=== PATIENT | female | born 1940 | race Hispanic/Latino ===

== ENCOUNTER 2017-06-16 13:10 | Inpatient (IN) | payer MEDICARE ==
[2017-06-16] MEDS ORDERED: DUONEB *Not for PRN Use IH ONE ×3 (13:29→15:03)
[2017-06-16] MEDS ORDERED: LASIX IV ONE (14:01)
[2017-06-16 14:07] LABS: Basophils # (Auto) 0.1 K/mm3 (0.0-0.1); Basophils % (Auto) 0.7 % (0.0-1.8); Eosinophils # (Auto) 0.1 K/mm3 (0.0-0.4); Eosinophils % (Auto) 0.5 % (0.0-4.3); Lymphocytes # (Auto) 1.1 K/mm3 (1.2-5.4); Lymphocytes % (Auto) 7.6 % (13.4-35.0); Mean Corpuscular HGB Conc 30 % (30-34); Mean Corpuscular Volume 80 fl (79-97); Platelet Count 295 K/mm3 (140-440); Red Blood Count 5.51 M/mm3 (3.65-5.03); Red Cell Distribution Width 19.7 % (13.2-15.2)
[2017-06-16 14:11] LABS: Hematocrit 44.1 % (30.3-42.9); Hemoglobin 13.4 gm/dl (10.1-14.3); Mean Corpuscular Hemoglobin 24 pg (28-32)
[2017-06-16 14:15] LABS: INR 1.3 (0.87-1.13)
[2017-06-16 14:16] LABS: Partial Thromboplastin Time 32.9 Sec. (24.2-36.6)
[2017-06-16 14:18] LABS: BUN/Creatinine Ratio 26; Blood Urea Nitrogen 34 mg/dL (7-17); Calcium 9.7 mg/dL (8.4-10.2); Hemolysis Index 61
--- NOTE | 2017-06-16 14:31 | XRay Report ---
AP CHEST: HISTORY: Difficulty in breathing No comparison. There is moderate cardiomegaly with normal pulmonary vascularity. The lungs are clear. The bony structures are grossly intact. IMPRESSION: Cardiomegaly.
[2017-06-16] MEDS ORDERED: LEVAQUIN 500MG/100ML 500 MG/100 ML BAG IV ONE (15:04)
[2017-06-16] MEDS ORDERED: CARDIZEM IV ONE (15:05)
--- NOTE | 2017-06-16 15:07 | Emergency Department Report ---
ED General Adult HPI - General Chief complaint: Dyspnea/Respdistress Stated complaint: MARY JO Time Seen by Provider: 06/16/17 13:59 Source: patient, EMS Mode of arrival: Stretcher Limitations: No Limitations - History of Present Illness Initial comments: Patient presents to the emergency department in respiratory distress. States that she was just admitted to [facility] for pneumonia. She gives a history of chronic atrial fibrillation as well as congestive heart failure. She is not on home O2. She does not complain of chest pain or leg pain. She has noted leg edema since her discharge from [facility]. The patient was found to have a pulse oximetry in the 80s by EMS. She was treated with albuterol and Solu-Medrol and magnesium by EMS. States her symptoms are somewhat improved. -: Gradual, days(s) Radiation: other (not complaining of pain) Severity scale (0 -10): 0 Consistency: constant (dyspnea for the past few days since discharge) Improves with: none Worsens with: none Associated Symptoms: cough (occasional cough only no hemoptysis.), shortness of breath Treatments Prior to Arrival: none - Related Data Allergies Allergy/AdvReac Type Severity Reaction Status Date / Time No Known Allergies Allergy Unverified 06/16/17 13:34 ED Review of Systems ROS: Stated complaint: MARY JO Other details as noted in HPI Constitutional: denies: chills, fever Eyes: denies: eye pain, eye discharge, vision change ENT: denies: ear pain, throat pain Respiratory: shortness of breath. denies: wheezing Cardiovascular: denies: chest pain, palpitations Endocrine: no symptoms reported Gastrointestinal: denies: abdominal pain, nausea, diarrhea Genitourinary: denies: urgency, dysuria, discharge Musculoskeletal: denies: back pain, joint swelling, arthralgia Skin: denies: rash, lesions Neurological: denies: headache, weakness, paresthesias Psychiatric: denies: anxiety, depression Hematological/Lymphatic: denies: easy bleeding, easy bruising ED Past Medical Hx - Past Medical History Previous Medical History?: Yes Hx Hypertension: Yes Hx Congestive Heart Failure: Yes Hx Asthma: Yes Additional medical history: AFIB - Social History Smoking Status: Never Smoker Substance Use Type: None ED Physical Exam - General Limitations: No Limitations General appearance: alert, other (mild respiratory distress on a neb) - Head Head exam: Present: atraumatic, normocephalic - Eye Eye exam: Present: normal appearance. Absent: scleral icterus - ENT ENT exam: Present: mucous membranes moist - Respiratory Respiratory exam: Present: wheezes, rales (bilateral rales do sound somewhat moist), accessory muscle use. Absent: respiratory distress - Cardiovascular Cardiovascular Exam: Present: tachycardia, irregular rhythm. Absent: systolic murmur, diastolic murmur, rubs, gallop - GI/Abdominal GI/Abdominal exam: Present: soft, normal bowel sounds. Absent: distended, tenderness, guarding, rebound, rigid - Extremities Exam Extremities exam: Present: normal inspection - Back Exam Back exam: Present: normal inspection - Neurological Exam Neurological exam: Present: alert, oriented X3, CN II-XII intact. Absent: motor sensory deficit - Psychiatric Psychiatric exam: Present: normal affect, normal mood - Skin Skin exam: Present: warm, dry, intact, normal color. Absent: rash ED Course Vital Signs 06/16/17 06/16/17 06/16/17 13:34 13:37 14:05 Temperature 97.3 F L Pulse Rate 118 H Pulse Rate [ 118 H 105 H Anterior Bilateral Throughout] Respiratory 30 H Rate Respiratory 20 20 Rate [Anterior Bilateral Throughout] Blood Pressure 118/67 O2 Sat by Pulse 91 Oximetry 06/16/17 06/16/17 06/16/17 14:14 14:15 14:19 Temperature Pulse Rate 119 H 113 H Pulse Rate [ Anterior Bilateral Throughout] Respiratory 18 14 20 Rate Respiratory Rate [Anterior Bilateral Throughout] Blood Pressure 105/60 O2 Sat by Pulse 91 91 Oximetry 06/16/17 06/16/17 14:31 15:05 Temperature Pulse Rate 120 H Pulse Rate [ 120 H Anterior Bilateral Throughout] Respiratory 17 Rate Respiratory 22 Rate [Anterior Bilateral Throughout] Blood Pressure 116/68 O2 Sat by Pulse Oximetry - Reevaluation(s) Reevaluation #1: The patient's respiratory distress appears to be multifactorial. I don't find her x-ray particularly compelling for refractory pneumonia. She was continued on Levaquin. She is continued on nebs. She's had magnesium and Solu-Medrol. She was given a small dose of Lasix and diltiazem for her atrial fibrillation with rapid ventricular response. I also added a d-dimer because she was substantially hypoxic per report. At this point she does not require airway intervention or BiPAP. This will have to be monitored. An arterial blood gas will be done as necessary. 06/16/17 15:13 ED Medical Decision Making - Lab Data Result diagrams: 06/16/17 13:43 06/16/17 13:43 Laboratory Results - last 24 hr 06/16/17 06/16/17 06/16/17 13:43 13:43 13:43 WBC 14.4 H RBC 5.51 H Hgb 13.4 Hct 44.1 H MCV 80 MCH 24 L MCHC 30 RDW 19.7 H Plt Count 295 Lymph % (Auto) 7.6 L [place] % (Auto) 7.0 Eos % (Auto) 0.5 Baso % (Auto) 0.7 Lymph # 1.1 L [place] # 1.0 H Eos # 0.1 Baso # 0.1 Seg Neutrophils % 84.2 H Seg Neutrophils # 12.2 H PT 16.9 H INR 1.30 H APTT 32.9 Sodium 143 Potassium 4.0 Chloride 102.9 Carbon Dioxide 20 L Anion Gap 24 BUN 34 H Creatinine 1.3 H Estimated GFR 40 BUN/Creatinine Ratio 26 Glucose 107 H Calcium 9.7 Troponin T < 0.010 NT-Pro-B Natriuret Pep 3968 H - EKG Data -: EKG Interpreted by Me Rate: tachycardia - EKG Data Interpretation: other (low-voltage particularly in the standard leads. Left axis deviation. Atrial fibrillation with rapid ventricular response. Loss of anterior forces possibly consistent with old anterior infarct.) - Radiology Data Radiology results: report reviewed interpreted by me: Patient has cardiomegaly on x-ray. She has chronic markings. I'm not impressed with the presence of a refractory pneumonia. She does have some increased vascular markings. Critical Care Time: Yes Critical care time in (mins) excluding proc time.: 60 Critical care attestation.: If time is entered above; I have spent that time in minutes in the direct care of this critically ill patient, excluding procedure time. ED Disposition Clinical Impression: Respiratory distress, Hypoxia, COPD exacerbation, Atrial fibrillation with rapid ventricular response Cardiomyopathy Qualifiers: Cardiomyopathy type: unspecified Qualified Code(s): I42.9 - Cardiomyopathy, unspecified Disposition: DC-09 OP ADMIT IP TO THIS HOSP Is pt being admited?: Yes Does the pt Need Aspirin: Yes Condition: Stable Instructions: Chronic Bronchitis (ED) Referrals: PRIMARY CARE, [Primary Care Provider] - 3-5 Days Time of Disposition: 15:19
[2017-06-16] MEDS ORDERED: BABY ASPIRIN PO ONE (15:19)
[2017-06-16 15:22] LABS: Albumin 4.5 g/dL (3.9-5); Bilirubin,Direct 0.2 mg/dL (0-0.2); Magnesium 3.4 mg/dL (1.7-2.3)
--- NOTE | 2017-06-16 16:31 | History and Physical Report ---
History of Present Illness Chief complaint: Its hard for me to catch my breath History of present illness: 77 YO Female with Atrial Fib, HTN, COPD, Asthma, CHF presents to ED for evaluation. Pt states that she has experienced shortness of breath for the past 3 days with worsening symptoms over the past 6 hours. Pt also acknowledges feeling like her heart is beating too fast. EMS was notified and upon arrival patient was found to have hypoxemic respiratory failure with oxygen saturation in the 80's. Pt treated with nebulizer and steroid therapy and transported to [facility] for evaluation. Pt seen and evaluated in ED and found to have Atrial Fib with RVR, As well as sepsis, pneumonia with exacerbation of COPD. Pt initiated on sepsis protocol, treated with NIPPV and admitted to telemetry. Past History Past Medical History: atrial fib, COPD, heart failure, hypertension Past Surgical History: No surgical history, Other (reviewed) Social history: . denies: smoking, alcohol abuse, prescription drug abuse Family history: hypertension Medications and Allergies Allergies Allergy/AdvReac Type Severity Reaction Status Date / Time No Known Allergies Allergy Unverified 06/16/17 13:34 Review of Systems Constitutional: no weight loss, no weight gain, no fever, no chills Ears, nose, mouth and throat: no ear pain, no ear discharge, no tinnitis, no decreased hearing, no nose pain Breasts: no change in shape, no swelling, no mass Cardiovascular: palpitations, shortness of breath, no chest pain, no orthopnea, no edema, no dyspnea on exertion, no paroxysmal nocturnal dyspnea, no claudication, no phlebitis Respiratory: no cough, no congestion, no wheezing, no pleurisy, no pain Gastrointestinal: no nausea, no vomiting, no diarrhea Genitourinary Female: no pelvic pain, no flank pain, no menorrhagia Menstruation: no currently menstrual, no premenarcheal, no post hysterectomy Rectal: no pain, no incontinence, no bleeding Musculoskeletal: no neck stiffness, no neck pain, no shooting arm pain, no arm numbness/tingling, no low back pain Integumentary: no deferred, no rash, no pruritis Neurological: no head injury, no transient paralysis, no paralysis, no weakness , no parathesias, no numbness Psychiatric: no anxiety, no memory loss, no change in sleep habits, no sleep disturbances Endocrine: no cold intolerance, no heat intolerance, no polyphagia, no excessive thirst, no polyuria Hematologic/Lymphatic: no easy bruising, no easy bleeding Allergic/Immunologic: no urticaria, no allergic rhinitis, no wheezing Exam - Constitutional Vitals: Temp Pulse Resp BP Pulse Ox 97.3 F L 114 H 23 105/63 91 06/16/17 13:34 06/16/17 16:15 06/16/17 16:15 06/16/17 16:15 06/16/17 14:19 General appearance: Present: mild distress - EENT Eyes: Present: PERRL ENT: hearing intact, clear oral mucosa - Neck Neck: Present: supple, normal ROM - Respiratory Respiratory effort: labored Respiratory: bilateral: diminished - Cardiovascular Rhythm: irregularly irregular - Extremities Extremities: pulses symmetrical, No edema Peripheral Pulses: within normal limits - Abdominal General gastrointestinal: Present: soft, non-tender, non-distended, normal bowel sounds Female genitourinary: Present: normal - Integumentary Integumentary: Present: clear, warm, dry - Musculoskeletal Musculoskeletal: gait normal, strength equal bilaterally - Psychiatric Psychiatric: appropriate mood/affect, intact judgment & insight - Neurologic Neurologic: CNII-XII intact, moves all extremities Results - Labs CBC & Chem 7: 06/16/17 13:43 06/16/17 13:43 Labs: Abnormal lab results 06/16/17 06/16/17 06/16/17 Range/Units 13:43 13:43 13:43 WBC 14.4 H (4.5-11.0) K/mm3 RBC 5.51 H (3.65-5.03) M/mm3 Hct 44.1 H (30.3-42.9) % MCH 24 L (28-32) pg RDW 19.7 H (13.2-15.2) % Lymph % (Auto) 7.6 L (13.4-35.0) % Lymph # 1.1 L (1.2-5.4) K/mm3 [place] # 1.0 H (0.0-0.8) K/mm3 Seg Neutrophils % 84.2 H (40.0-70.0) % Seg Neutrophils # 12.2 H (1.8-7.7) K/mm3 PT 16.9 H (12.2-14.9) Sec. INR 1.30 H (0.87-1.13) D-Dimer (0-234) ng/mlDDU POC ABG pO2 (80-105) Carbon Dioxide 20 L (22-30) mmol/L BUN 34 H (7-17) mg/dL Creatinine 1.3 H (0.7-1.2) mg/dL Glucose 107 H (65-100) mg/dL Lactic Acid (0.7-2.0) mmol/L Magnesium (1.7-2.3) mg/dL NT-Pro-B Natriuret Pep 3968 H (0-900) pg/mL 06/16/17 06/16/17 06/16/17 Range/Units 13:43 14:28 14:28 WBC (4.5-11.0) K/mm3 RBC (3.65-5.03) M/mm3 Hct (30.3-42.9) % MCH (28-32) pg RDW (13.2-15.2) % Lymph % (Auto) (13.4-35.0) % Lymph # (1.2-5.4) K/mm3 [place] # (0.0-0.8) K/mm3 Seg Neutrophils % (40.0-70.0) % Seg Neutrophils # (1.8-7.7) K/mm3 PT (12.2-14.9) Sec. INR (0.87-1.13) D-Dimer 328.38 H (0-234) ng/mlDDU POC ABG pO2 (80-105) Carbon Dioxide (22-30) mmol/L BUN (7-17) mg/dL Creatinine (0.7-1.2) mg/dL Glucose (65-100) mg/dL Lactic Acid 2.10 H* (0.7-2.0) mmol/L Magnesium 3.40 H (1.7-2.3) mg/dL NT-Pro-B Natriuret Pep (0-900) pg/mL 06/16/17 Range/Units 15:31 WBC (4.5-11.0) K/mm3 RBC (3.65-5.03) M/mm3 Hct (30.3-42.9) % MCH (28-32) pg RDW (13.2-15.2) % Lymph % (Auto) (13.4-35.0) % Lymph # (1.2-5.4) K/mm3 [place] # (0.0-0.8) K/mm3 Seg Neutrophils % (40.0-70.0) % Seg Neutrophils # (1.8-7.7) K/mm3 PT (12.2-14.9) Sec. INR (0.87-1.13) D-Dimer (0-234) ng/mlDDU POC ABG pO2 57 L (80-105) Carbon Dioxide (22-30) mmol/L BUN (7-17) mg/dL Creatinine (0.7-1.2) mg/dL Glucose (65-100) mg/dL Lactic Acid (0.7-2.0) mmol/L Magnesium (1.7-2.3) mg/dL NT-Pro-B Natriuret Pep (0-900) pg/mL Assessment and Plan - Patient Problems (1) Sepsis Current Visit: Yes Status: Acute Plan to address problem: Sepsis protocol: IV abx, IVF, monitor uop q shift, blood cultures, urine cultures, serial lactic acid level, NIPPV as clinically indicated. (2) Acute respiratory failure Current Visit: Yes Status: Acute Plan to address problem: Supplemental oxygen, nebs, aspiration precautions, treat sepsis, monitor uop q shift, incentive spirometry (3) Atrial fibrillation with rapid ventricular response Current Visit: Yes Status: Acute Plan to address problem: Cardizem bolus, PO cardizem tid, telemetry monitoring, D dimer, CTA chest, (4) COPD exacerbation Current Visit: Yes Status: Acute Plan to address problem: IV abx, nebulizer, steroid therapy,supplemental oxygen, NIPPV as clinically indicated, (5) DVT prophylaxis Current Visit: Yes Status: Acute
[2017-06-16] MEDS ORDERED: PROVENTIL IH PRN (16:33)
[2017-06-16] MEDS ORDERED: TYLENOL PO PRN (16:33)
[2017-06-16] MEDS ORDERED: NACL 0.9% 1000 ML IV ONE (16:33)
[2017-06-16] MEDS ORDERED: DULCOLAX PR PRN (16:33)
[2017-06-16] MEDS ORDERED: MILK OF MAGNESIA PO PRN (16:33)
[2017-06-16] MEDS ORDERED: ZOFRAN IV PRN (16:33)
[2017-06-16] MEDS ORDERED: ATIVAN IV PRN (16:42)
[2017-06-16] MEDS ORDERED: NACL ONE (16:56)
[2017-06-16 17:13] LABS: Bacteria,Urine 2+ /HPF (Negative); Bilirubin,Urine NEG (Negative); Blood,Urine NEG (Negative); Color,Urine Yellow (Yellow); Mucus,Urine FEW /HPF; Nitrite,Urine NEG (Negative); Urobilinogen,Urine < 2.0 mg/dL (<2.0)
[2017-06-16] MEDS ORDERED: ZITHROMAX 500 MG in NACL 0.9% 250ML 250 ML IV SCH (18:30)
[2017-06-16] MEDS: cefTRIAXone 2 GM in NACL 0.9% 20 ML IV SCH (18:30)
[2017-06-16 19:40] LABS: Calcium 9.7 mg/dL (8.4-10.2)
[2017-06-17] MEDS: DUONEB *Not for PRN Use IH SCH ×4 (02:12→21:39)
[2017-06-17] MEDS ORDERED: ROCEPHIN/NS 2 GM/100 ML 2 GM/100 ML BAG IV SCH (10:00)
[2017-06-17] MEDS: ZITHROMAX PO SCH (10:55)
--- NOTE | 2017-06-17 12:33 | Consultation ---
History of Present Illness Consult date: 06/17/17 Requesting physician: MARTHA GONZALEZ Consult reason: atrial fibrillation, shortness of breath, other (NSVT) History of present illness: The pt is a 77 YO female with a past medical history significant for paroxysmal atrial fibrillation, anticoagulated with Eliquis, HTN, CKD, ascending aortic aneurysm 4.[address] done 04/30/2017. She is followed by Dr. Gustabo Del Angel at [facility]. She presented with c/o progressively worsening SOB since Wednesday. She also admits to some palpitations on the day of admission. She denies any chest pain, n/v, diaphoresis, dizziniess or syncope. Following admission, pt was found to have AFib with RVR, PNA and acute hypoxemic respiratory failure. On evaluation, pt remains in AFib with HR 100s - 120s. Echo done 01/2017 showed EF 60%, LA and RA severely dilated, mild AR, mild to mod MR. Past History Past Medical History: atrial fib, COPD, heart failure, hypertension Past Surgical History: No surgical history, Other (reviewed) Social history: . denies: smoking, alcohol abuse, prescription drug abuse Family history: hypertension Medications and Allergies Allergies Allergy/AdvReac Type Severity Reaction Status Date / Time No Known Allergies Allergy Unverified 06/16/17 13:34 Home Medications Medication Instructions Recorded Confirmed Last Taken Type Albuterol Sulfate 1.25 mg IH TID 06/16/17 06/16/17 Unknown History Albuterol Sulfate [Proair 2 puff IH Q6H 06/16/17 06/16/17 Unknown History Respiclick] Apixaban [Eliquis] 2.5 mg PO BID 06/16/17 06/16/17 Unknown History AtorvaSTATin [Lipitor] 20 mg PO DAILY 06/16/17 06/16/17 Unknown History Levofloxacin [Levaquin] 750 mg PO DAILY 06/16/17 06/16/17 Unknown History Saccharomyces Boulardii [Probiotic] 250 mg PO BID 06/16/17 06/16/17 Unknown History amLODIPine [Norvasc] 10 mg PO DAILY 06/16/17 06/16/17 Unknown History Active Meds: Active Medications Acetaminophen (Tylenol) 650 mg PO Q4H PRN PRN Reason: Pain MILD(1-3)/Fever >100.5/CALDERÓN Albuterol (Proventil) 2.5 mg IH Q4HRT PRN PRN Reason: Shortness Of Breath Last Admin: 06/16/17 20:50 Dose: 2.5 mg Albuterol/Ipratropium (Duoneb *Not For Prn Use*) 1 ampul IH Q6HRT [facility] Last Admin: 06/17/17 08:22 Dose: 1 ampul Azithromycin (Zithromax) 500 mg PO Q24H [facility] Last Admin: 06/17/17 10:55 Dose: 500 mg Bisacodyl (Dulcolax) 10 mg NC QDAY PRN PRN Reason: Constipation unrelieved by MOM Ceftriaxone Sodium 2 gm/ (Sodium Chloride) 20 mls @ 20 mls/10 min IV Q24H [facility] Last Admin: 06/16/17 18:30 Dose: 20 mls/10 min Lorazepam (Ativan) 0.5 mg IV Q4H PRN PRN Reason: Anxiety Magnesium Hydroxide (Milk Of Magnesia) 30 ml PO Q4H PRN PRN Reason: Constipation Methylprednisolone Sodium Succinate (Solu-Medrol) 20 mg IV Q12H [facility] Last Admin: 06/17/17 05:39 Dose: 20 mg Ondansetron HCl (Zofran) 4 mg IV Q8H PRN PRN Reason: N/V unrelieved by Reglan Review of Systems Constitutional: no weight loss, no weight gain, no fever, no chills, no sweats Ears, nose, mouth and throat: no ear pain, no nose pain, no sinus pressure, no sinus pain Cardiovascular: palpitations, rapid/irregular heart beat, shortness of breath, dyspnea on exertion, no chest pain, no orthopnea, no edema, no syncope, no lightheadedness Respiratory: no cough, no congestion Gastrointestinal: no abdominal pain, no nausea, no vomiting, no diarrhea, no constipation, no change in bowel habits Genitourinary Female: no pelvic pain, no flank pain, no dysuria, no urinary frequency, no urgency Musculoskeletal: no neck stiffness, no neck pain Integumentary: no rash, no pruritis, no redness, no sores, no wounds Neurological: no head injury, no paralysis, no weakness, no parathesias, no numbness, no tingling, no seizures Psychiatric: no anxiety Endocrine: no cold intolerance, no heat intolerance Hematologic/Lymphatic: no easy bruising, no easy bleeding, no lymphadenopathy Allergic/Immunologic: no urticaria, no wheezing, no persistent infections Physical Examination Vital Signs Temp Pulse Resp BP Pulse Ox 97.3 F L 118 H 30 H 118/67 91 06/16/17 13:34 06/16/17 13:34 06/16/17 13:34 06/16/17 13:34 06/16/17 13:34 General appearance: no acute distress HEENT: Positive: PERRL, Normocephaly, Mucus Membranes Moist Neck: Positive: neck supple, trachea midline Cardiac: Positive: irregularly irregular Lungs: Positive: Decreased Breath Sounds Neuro: Positive: Grossly Intact Abdomen: Positive: Soft. Negative: Tender Skin: Positive: Clear. Negative: Rash, Wound Musculoskeletal: No Fluid Collection, No Pain, Normal Range of Motion Extremities: Absent: edema Results 06/16/17 13:43 06/16/17 18:59 Cardiac Enzymes 06/16/17 Range/Units 14:28 AST 30 (5-40) units/L Coagulation 06/16/17 Range/Units 13:43 PT 16.9 H (12.2-14.9) Sec. INR 1.30 H (0.87-1.13) APTT 32.9 (24.2-36.6) Sec. CBC 06/16/17 Range/Units 13:43 WBC 14.4 H (4.5-11.0) K/mm3 RBC 5.51 H (3.65-5.03) M/mm3 Hgb 13.4 (10.1-14.3) gm/dl Hct 44.1 H (30.3-42.9) % Plt Count 295 (140-440) K/mm3 Lymph # 1.1 L (1.2-5.4) K/mm3 [place] # 1.0 H (0.0-0.8) K/mm3 Eos # 0.1 (0.0-0.4) K/mm3 Baso # 0.1 (0.0-0.1) K/mm3 Comprehensive Metabolic Panel 06/16/17 06/16/17 06/16/17 Range/Units 13:43 14:28 18:59 Sodium 143 142 (137-145) mmol/L Potassium 4.0 3.9 (3.6-5.0) mmol/L Chloride 102.9 99.7 (98-107) mmol/L Carbon Dioxide 20 L 21 L (22-30) mmol/L BUN 34 H 37 H (7-17) mg/dL Creatinine 1.3 H 1.4 H (0.7-1.2) mg/dL Glucose 107 H 141 H (65-100) mg/dL Calcium 9.7 9.7 (8.4-10.2) mg/dL Direct Bilirubin 0.2 (0-0.2) mg/dL Indirect Bilirubin 0.4 mg/dL AST 30 (5-40) units/L ALT 24 (7-56) units/L Alkaline Phosphatase 74 (35-129) units/L Total Protein 7.6 (6.3-8.2) g/dL Albumin 4.5 (3.9-5) g/dL - Imaging and Cardiology Echo: report reviewed ( 01/2017 showed EF 60%, LA and RA severely dilated, mild AR, mild to mod MR) EKG: report reviewed, image reviewed EKG interpretations - Telemetry EKG Rhythm: Atrial Fibrillation - EKG Supraventricular dysrhythmia: atrial fibrillation Assessment and Plan Assessment: Paroxysmal atrial fibrillation with RVR Acute hypoxic respiratory failure - improving ? PNA v. bronchitis v. COPD exac ? Sepsis / lactic acidosis HTN CKD Ascending aortic aneurysm 4.[address] done 04/30/2017 Plan: Resume home Eliquis and lopressor. Abx per primary. Assessment and plan reviewed with pt at bedside. The patient has been seen in conjunction with Dr. EZEKIEL Robert who agrees with the assessment and plan of care.
--- NOTE | 2017-06-17 14:29 | Cat Scan Report ---
CTA CHEST: HISTORY: Dyspnea. COMPARISON: none. TECHNIQUE: Helical CT in 1.25mm intervals following IV contrast. Pulmonary embolus protocol. Sagittal and coronal reformatted images. Rotational MIP images. FINDINGS: Contrast bolus is satisfactory. No pulmonary embolus is identified. Thyroid gland: Normal. Tracheobronchial tree: Normal. Esophagus: Normal. Heart: Moderate to severe cardiomegaly is evident. Pericardium: Normal. Mediastinum: Normal. Lung Means: There is partial atelectasis within the medial right middle lobe and inferior left upper lobe. No evidence for infiltrate, mass or pneumothorax. Pleural Spaces: Normal. Musculoskeletal: Moderate thoracic spondylosis is noted. IMPRESSION: No evidence for pulmonary embolus. Cardiomegaly. Atelectatic changes as described.
--- NOTE | 2017-06-17 15:00 | Progress Note ---
Assessment and Plan 1) Sepsis Current Visit: Yes Status: Acute Plan to address problem: Has elevated lactic acid level and Leukocytosis Sepsis protocol: IV abx, IVF, monitor uop q shift, Blood culture, - no growth so far blood cultures, urine cultures, serial lactic acid level, NIPPV as clinically indicated. (2) Acute respiratory failure - Hypoxemic Current Visit: Yes Status: Acute Plan to address problem: Supplemental oxygen, nebs, aspiration precautions, treat sepsis, monitor uop q shift, incentive spirometry (3) Atrial fibrillation with rapid ventricular response Current Visit: Yes Status: Acute Plan to address problem: Cardizem bolus, PO cardizem tid, telemetry monitoring, D dimer, CTA chest showed no PE, Anticoafulated with eliquis. Cardioogy counsulted (4) Ascending Aorta Aneurysm - 4.[address] of 04/30/17 Stable. Followed by at [facility] (5) COPD exacerbation Current Visit: Yes Status: Acute Plan to address problem: IV abx, nebulizer, steroid therapy,supplemental oxygen, NIPPV as clinically indicated, (5) DVT prophylaxis Current Visit: Yes Status: Acute Subjective Date of service: 06/17/17 Principal diagnosis: sepsis, Acute respiratory failure Interval history: c/o shortness of breath and palpitation Objective - Constitutional Vitals: Vital Signs - 12hr 06/17/17 06/17/17 06/17/17 05:28 06:00 08:55 Temperature 98.3 F 98.1 F Pulse Rate 124 H 125 H 93 H Respiratory 22 19 Rate Blood Pressure 109/60 Blood Pressure 116/60 [Right] O2 Sat by Pulse 92 93 Oximetry 06/17/17 06/17/17 10:00 11:24 Temperature 98.0 F Pulse Rate 89 Respiratory 20 Rate Blood Pressure 114/60 Blood Pressure [Right] O2 Sat by Pulse 92 93 Oximetry General appearance: Present: no acute distress, well-nourished - EENT Eyes: PERRL, EOM intact - Neck Neck: supple, normal ROM - Respiratory Respiratory effort: normal Respiratory: bilateral: diminished - Cardiovascular Rhythm: irregularly irregular Heart Sounds: Present: S1 & S2. Absent: gallop, rub Extremities: pulses intact, No edema, normal color, Full ROM - Gastrointestinal General gastrointestinal: Present: soft, non-tender, non-distended, normal bowel sounds - Integumentary Integumentary: clear, warm, dry - Musculoskeletal Musculoskeletal: 1, strength equal bilaterally - Neurologic Neurologic: moves all extremities - Psychiatric Psychiatric: memory intact, appropriate mood/affect, intact judgment & insight - Labs CBC & Chem 7: 06/16/17 13:43 06/16/17 18:59 Labs: Abnormal lab results 06/16/17 06/16/17 06/16/17 Range/Units 13:43 14:28 14:28 D-Dimer 328.38 H (0-234) ng/mlDDU POC ABG pO2 (80-105) Carbon Dioxide (22-30) mmol/L BUN (7-17) mg/dL Creatinine (0.7-1.2) mg/dL Glucose (65-100) mg/dL Lactic Acid 2.10 H* (0.7-2.0) mmol/L Magnesium 3.40 H (1.7-2.3) mg/dL 06/16/17 06/16/17 06/16/17 Range/Units 15:31 18:59 18:59 D-Dimer (0-234) ng/mlDDU POC ABG pO2 57 L (80-105) Carbon Dioxide 21 L (22-30) mmol/L BUN 37 H (7-17) mg/dL Creatinine 1.4 H (0.7-1.2) mg/dL Glucose 141 H (65-100) mg/dL Lactic Acid 2.10 H* (0.7-2.0) mmol/L Magnesium (1.7-2.3) mg/dL
[2017-06-17] MEDS: LOPRESSOR PO SCH ×2 (15:09→22:55)
[2017-06-17] MEDS: cefTRIAXone 2 GM in NACL 0.9% 20 ML IV SCH (18:05)
[2017-06-17] MEDS: ELIQUIS PO SCH (22:55)
[2017-06-18] MEDS: DUONEB *Not for PRN Use IH SCH ×6 (02:10→20:20)
[2017-06-18 05:47] LABS: Hemoglobin 11.6 gm/dl (10.1-14.3); Mean Corpuscular HGB Conc 32 % (30-34); Mean Corpuscular Volume 79 fl (79-97); Platelet Count 225 K/mm3 (140-440); Red Blood Count 4.55 M/mm3 (3.65-5.03); Red Cell Distribution Width 18.8 % (13.2-15.2)
[2017-06-18 05:48] LABS: Mean Corpuscular Hemoglobin 26 pg (28-32)
[2017-06-18 05:50] LABS: Albumin 3.5 g/dL (3.9-5); Calcium 9.3 mg/dL (8.4-10.2); Magnesium 2.4 mg/dL (1.7-2.3)
[2017-06-18 08:57] LABS: Band Neutrophils # (Manual) 0.4 K/mm3; Basophils % (Manual) 0 % (0.0-1.8); Eosinophils % (Manual) 0 % (0.0-4.3); Total Cells Counted 100
[2017-06-18 08:58] LABS: Hypochromasia Few; Poikilocytosis Few
--- NOTE | 2017-06-18 11:01 | Progress Note ---
Assessment and Plan Assessment: Paroxysmal atrial fibrillation with RVR Acute hypoxic respiratory failure - improving ? PNA v. bronchitis v. COPD exac ? Sepsis / lactic acidosis HTN CKD Ascending aortic aneurysm 4.[address] done 04/30/2017 Atrial fibrillation rate is about 110. Pulmonary status is slightly better and the white count has improved . One dose of metoprolol was held because of her hypotension. If this becomes a problem we may have to consider adding digoxin small dose and monitor the renal function and digoxin level closely if we add digoxin. Continue monitoring the atrial fibrillation. - Patient Problems (1) Atrial fibrillation with rapid ventricular response Current Visit: Yes Status: Acute (2) COPD exacerbation Current Visit: Yes Status: Acute (3) Cardiomyopathy Current Visit: Yes Status: Acute Qualifiers: Cardiomyopathy type: unspecified Qualified Code(s): I42.9 - Cardiomyopathy , unspecified Subjective Date of service: 06/18/17 Principal diagnosis: sepsis, Acute respiratory failure Interval history: Patient continues to complain of dyspnea. She does complain of fatigue. She is on oxygen. No significant chest pain Objective Vital Signs Temp Pulse Pulse Resp Resp BP BP 06/18/17 09:08 97.6 F 85 20 113/66 06/18/17 08:27 105 H 20 06/18/17 08:19 108 H 20 06/18/17 06:00 104 H 06/18/17 03:52 98.0 F 87 19 97/65 06/17/17 23:50 97.8 F 96 H 22 154/44 06/17/17 23:45 98.7 F 83 20 90/45 06/17/17 22:55 100 H 91/59 06/17/17 22:00 88 22 06/17/17 20:46 101 H 24 06/17/17 20:40 06/17/17 20:36 98 H 22 06/17/17 19:33 98.6 F 100 H 20 91/59 06/17/17 15:47 98.0 F 93 H 18 119/57 06/17/17 15:09 100 H 125/74 06/17/17 13:21 115 H 20 06/17/17 13:11 109 H 20 06/17/17 11:24 98.0 F 89 20 114/60 Pulse Ox 06/18/17 09:08 95 06/18/17 08:27 06/18/17 08:19 100 06/18/17 06:00 06/18/17 03:52 96 06/17/17 23:50 89 06/17/17 23:45 92 06/17/17 22:55 06/17/17 22:00 93 06/17/17 20:46 06/17/17 20:40 92 06/17/17 20:36 06/17/17 19:33 93 06/17/17 15:47 93 06/17/17 15:09 06/17/17 13:21 06/17/17 13:11 06/17/17 11:24 93 - Physical Examination General: Other (appears to be chronically ill and in distress due to her dyspnea and fatigue) HEENT: Positive: PERRL, Normocephaly, Mucus Membranes Moist Neck: Positive: neck supple, trachea midline Cardiac: Positive: irregularly irregular, Tachycardia Lungs: Positive: Other (prolonged expiratory phase and scattered rhonchi present.) Neuro: Positive: Grossly Intact Abdomen: Positive: Soft. Negative: Tender Skin: Positive: Clear. Negative: Rash, Wound Musculoskeletal: No Fluid Collection, No Pain, Normal Range of Motion Extremities: Absent: edema - Labs and Meds Cardiac Enzymes 06/18/17 Range/Units 04:47 AST 32 (5-40) units/L CBC 06/18/17 Range/Units 04:47 WBC 12.3 H (4.5-11.0) K/mm3 RBC 4.55 (3.65-5.03) M/mm3 Hgb 11.6 (10.1-14.3) gm/dl Hct 36.0 D (30.3-42.9) % Plt Count 225 (140-440) K/mm3 Comprehensive Metabolic Panel 06/18/17 Range/Units 04:47 Sodium 145 (137-145) mmol/L Potassium 3.6 (3.6-5.0) mmol/L Chloride 104.6 (98-107) mmol/L Carbon Dioxide 25 (22-30) mmol/L BUN 30 H (7-17) mg/dL Creatinine 1.2 (0.7-1.2) mg/dL Glucose 117 H (65-100) mg/dL Calcium 9.3 (8.4-10.2) mg/dL AST 32 (5-40) units/L ALT 29 (7-56) units/L Alkaline Phosphatase 55 (35-129) units/L Total Protein 6.3 (6.3-8.2) g/dL Albumin 3.5 L (3.9-5) g/dL - Imaging and Cardiology EKG: report reviewed, image reviewed Echo: report reviewed ( 01/2017 showed EF 60%, LA and RA severely dilated, mild AR, mild to mod MR)
[2017-06-18] MEDS: ELIQUIS PO SCH ×2 (11:19→21:15)
[2017-06-18] MEDS: ZITHROMAX PO SCH (11:20)
[2017-06-18] MEDS: LOPRESSOR PO SCH ×2 (11:20→21:16)
--- NOTE | 2017-06-18 16:24 | Progress Note ---
Assessment and Plan Assessment and Plan 1) Sepsis Current Visit: Yes Status: Acute Plan to address problem: Has elevated lactic acid level and Leukocytosis Sepsis protocol: IV abx, IVF, monitor uop q shift, Blood culture, - no growth so far blood cultures, urine cultures, serial lactic acid level, NIPPV as clinically indicated. (2) Acute respiratory failure - Hypoxemic Current Visit: Yes Status: Acute Plan to address problem: Supplemental oxygen, nebs, aspiration precautions, treat sepsis, monitor uop q shift, incentive spirometry (3) Atrial fibrillation with rapid ventricular response Current Visit: Yes Status: Acute Plan to address problem: Cardizem bolus, PO cardizem tid, telemetry monitoring, D dimer, CTA chest showed no PE, Anticoafulated with eliquis. Cardioogy counsulted (4) Ascending Aorta Aneurysm - 4.[address] of 04/30/17 Stable. Followed by at [facility] (5) COPD exacerbation Current Visit: Yes Status: Acute Plan to address problem: IV abx, nebulizer, steroid therapy,supplemental oxygen, NIPPV as clinically indicated, (5) DVT prophylaxis Current Visit: Yes Status: Acute Subjective Date of service: 06/18/17 Principal diagnosis: sepsis, Acute respiratory failure Interval history: Doing better Objective - Constitutional Vitals: Vital Signs - 12hr 06/18/17 06/18/17 06/18/17 06:00 08:19 08:27 Temperature Pulse Rate 104 H Pulse Rate [ 108 H 105 H Anterior Bilateral Throughout] Respiratory Rate Respiratory 20 20 Rate [Anterior Bilateral Throughout] Blood Pressure [Right] O2 Sat by Pulse 100 Oximetry 06/18/17 06/18/17 06/18/17 09:08 10:00 11:20 Temperature 97.6 F Pulse Rate 85 103 H Pulse Rate [ Anterior Bilateral Throughout] Respiratory 20 32 H Rate Respiratory Rate [Anterior Bilateral Throughout] Blood Pressure 113/66 [Right] O2 Sat by Pulse 95 90 Oximetry 06/18/17 06/18/17 06/18/17 12:48 13:57 14:00 Temperature 98.3 F Pulse Rate 95 H 90 101 H Pulse Rate [ Anterior Bilateral Throughout] Respiratory 18 24 Rate Respiratory Rate [Anterior Bilateral Throughout] Blood Pressure 112/74 [Right] O2 Sat by Pulse 83 L 90 Oximetry 06/18/17 06/18/17 06/18/17 14:03 14:13 16:21 Temperature Pulse Rate Pulse Rate [ 89 87 Anterior Bilateral Throughout] Respiratory Rate Respiratory 20 24 Rate [Anterior Bilateral Throughout] Blood Pressure [Right] O2 Sat by Pulse 94 Oximetry General appearance: Present: no acute distress, well-nourished - EENT Eyes: PERRL, EOM intact ENT: hearing intact, clear oral mucosa Ears: bilateral: normal - Neck Neck: supple, normal ROM - Respiratory Respiratory effort: normal Respiratory: bilateral: CTA - Breasts Breasts: normal - Cardiovascular Rhythm: regular Heart Sounds: Present: S1 & S2. Absent: gallop, rub Extremities: pulses intact, No edema, normal color, Full ROM - Gastrointestinal General gastrointestinal: Present: soft, non-tender, non-distended, normal bowel sounds - Genitourinary Female genitourinary: normal - Integumentary Integumentary: clear, warm, dry - Musculoskeletal Musculoskeletal: 1, strength equal bilaterally - Neurologic Neurologic: moves all extremities - Psychiatric Psychiatric: memory intact, appropriate mood/affect, intact judgment & insight - Labs CBC & Chem 7: 06/19/17 04:45 06/19/17 04:45 Labs: Abnormal lab results 06/18/17 06/18/17 Range/Units 04:47 04:47 WBC 12.3 H (4.5-11.0) K/mm3 MCH 26 L (28-32) pg RDW 18.8 H (13.2-15.2) % Seg Neuts % (Manual) 93.0 H (40.0-70.0) % Lymphocytes % (Manual) 3.0 L (13.4-35.0) % Seg Neutrophils # Man 11.4 H (1.8-7.7) K/mm3 Lymphocytes # (Manual) 0.4 L (1.2-5.4) K/mm3 BUN 30 H (7-17) mg/dL Glucose 117 H (65-100) mg/dL Magnesium 2.40 H (1.7-2.3) mg/dL Albumin 3.5 L (3.9-5) g/dL
[2017-06-18] MEDS ORDERED: DUONEB *Not for PRN Use IH (16:26)
[2017-06-18] MEDS: cefTRIAXone 2 GM in NACL 0.9% 20 ML IV SCH (19:22)
[2017-06-19] MEDS: DUONEB *Not for PRN Use IH SCH ×6 (01:00→19:51)
[2017-06-19 06:05] LABS: Hematocrit 38.1 % (30.3-42.9); Hemoglobin 12.3 gm/dl (10.1-14.3); Mean Corpuscular HGB Conc 32 % (30-34); Mean Corpuscular Hemoglobin 26 pg (28-32); Mean Corpuscular Volume 80 fl (79-97); Platelet Count 205 K/mm3 (140-440); Red Blood Count 4.76 M/mm3 (3.65-5.03); Red Cell Distribution Width 18.7 % (13.2-15.2)
[2017-06-19 07:28] LABS: Band Neutrophils # (Manual) 0.3 K/mm3; Basophils % (Manual) 0 % (0.0-1.8); Eosinophils % (Manual) 0 % (0.0-4.3); Monocytes % (Manual) 0 % (0.0-7.3); Total Cells Counted 100
[2017-06-19 07:30] LABS: Anisocytosis 1+; Platelet Estimate Consistent w Auto; Poikilocytosis 1+
[2017-06-19] MEDS: ELIQUIS PO SCH ×2 (10:33→22:35)
[2017-06-19] MEDS: ZITHROMAX PO SCH (10:38)
[2017-06-19] MEDS: LOPRESSOR PO SCH ×3 (10:44→22:35)
--- NOTE | 2017-06-19 10:57 | Progress Note ---
Assessment and Plan Paroxysmal atrial fibrillation with RVR Acute hypoxic respiratory failure hypercougable state secondary to afib ? PNA v. bronchitis v. COPD exac ? Sepsis / lactic acidosis HTN CKD Ascending aortic aneurysm 4.[address] done 04/30/2017 rec: increase lopressor to q8 and cont elquis and cont pulmonary treatment Subjective Date of service: 06/19/17 Principal diagnosis: sepsis, Acute respiratory failure Interval history: pt has sob on vm Objective Vital Signs Temp Pulse Pulse Resp Resp BP BP 06/19/17 09:35 81 22 06/19/17 09:26 06/19/17 09:20 78 20 06/19/17 08:40 97.5 F L 72 18 141/55 06/19/17 04:36 97.5 F L 92 H 20 119/64 06/19/17 01:15 83 25 H 06/19/17 01:02 81 23 06/18/17 23:59 97.4 F L 86 22 114/59 06/18/17 21:33 97 H 06/18/17 20:20 97.9 F 103 H 24 129/70 06/18/17 19:55 85 22 06/18/17 19:52 06/18/17 19:45 77 18 06/18/17 19:41 24 06/18/17 17:19 97.3 F L 78 20 111/64 06/18/17 16:21 06/18/17 16:16 97.3 F L 89 20 111/64 06/18/17 14:13 87 24 06/18/17 14:03 89 20 06/18/17 14:00 101 H 06/18/17 13:57 90 24 06/18/17 12:48 98.3 F 95 H 18 112/74 06/18/17 11:51 98.3 F 88 18 112/74 06/18/17 11:20 103 H Pulse Ox 06/19/17 09:35 06/19/17 09:26 96 06/19/17 09:20 06/19/17 08:40 95 06/19/17 04:36 93 06/19/17 01:15 06/19/17 01:02 06/18/17 23:59 93 06/18/17 21:33 06/18/17 20:20 90 06/18/17 19:55 06/18/17 19:52 99 06/18/17 19:45 06/18/17 19:41 06/18/17 17:19 94 06/18/17 16:21 94 06/18/17 16:16 95 06/18/17 14:13 06/18/17 14:03 06/18/17 14:00 06/18/17 13:57 90 06/18/17 12:48 83 L 06/18/17 11:51 79 L 06/18/17 11:20 - Physical Examination General: Other (appears to be chronically ill and in distress due to her dyspnea and fatigue) HEENT: Positive: PERRL, Normocephaly, Mucus Membranes Moist Neck: Positive: neck supple, trachea midline Cardiac: Positive: Tachycardia Lungs: Positive: Decreased Breath Sounds, Rhonchi Neuro: Positive: Grossly Intact Abdomen: Positive: Soft. Negative: Tender Skin: Positive: Clear. Negative: Rash, Wound Musculoskeletal: No Fluid Collection, No Pain, Normal Range of Motion Extremities: Absent: edema - Labs and Meds CBC 06/19/17 Range/Units 04:45 WBC 10.8 (4.5-11.0) K/mm3 RBC 4.76 (3.65-5.03) M/mm3 Hgb 12.3 (10.1-14.3) gm/dl Hct 38.1 (30.3-42.9) % Plt Count 205 (140-440) K/mm3 Comprehensive Metabolic Panel 06/19/17 Range/Units 04:45 Sodium 143 (137-145) mmol/L Potassium 4.1 (3.6-5.0) mmol/L Chloride 105.1 (98-107) mmol/L Carbon Dioxide 23 (22-30) mmol/L BUN 39 H (7-17) mg/dL Creatinine 1.1 (0.7-1.2) mg/dL Glucose 115 H (65-100) mg/dL Calcium 9.0 (8.4-10.2) mg/dL - Imaging and Cardiology EKG: report reviewed, image reviewed Echo: report reviewed ( 01/2017 showed EF 60%, LA and RA severely dilated, mild AR, mild to mod MR) - Telemetry EKG Rhythm: Atrial Fibrillation (90's)
[2017-06-19] MEDS: cefTRIAXone 2 GM in NACL 0.9% 20 ML IV SCH (18:01)
[2017-06-20] MEDS: DUONEB *Not for PRN Use IH SCH ×4 (02:20→20:37)
[2017-06-20] MEDS: LOPRESSOR PO SCH ×2 (06:26→21:42)
[2017-06-20 06:51] LABS: Hemoglobin 12.5 gm/dl (10.1-14.3); Mean Corpuscular HGB Conc 32 % (30-34); Mean Corpuscular Volume 79 fl (79-97); Platelet Count 196 K/mm3 (140-440); Red Blood Count 4.95 M/mm3 (3.65-5.03)
[2017-06-20 06:58] LABS: Mean Corpuscular Hemoglobin 25 pg (28-32)
[2017-06-20 07:10] LABS: Alanine Aminotransferase 70 units/L (7-56); Albumin 3.4 g/dL (3.9-5); BUN/Creatinine Ratio 37; Blood Urea Nitrogen 33 mg/dL (7-17); Calcium 9.1 mg/dL (8.4-10.2); Hemolysis Index 12
[2017-06-20 07:55] LABS: Basophils % (Manual) 0 % (0.0-1.8); Eosinophils % (Manual) 0 % (0.0-4.3); Total Cells Counted 100
[2017-06-20 07:56] LABS: Anisocytosis 1+; Large Platelets 1+; Ovalocytes 1+
[2017-06-20 07:57] LABS: Hypochromasia 1+; Platelet Estimate Consistent w Auto
--- NOTE | 2017-06-20 09:23 | Progress Note ---
Assessment and Plan Assessment and plan: Sepsis Elevated lactic acid level and Leukocytosis--resolved Cont. Sepsis protocol: IV abx, IVF, monitor uop q shift, Blood culture, - no growth so far blood cultures, NIPPV as clinically indicated. Acute Hypoxemic respiratory failure Supplemental oxygen, nebs, aspiration precautions, treat sepsis, monitor uop q shift, incentive spirometry Atrial fibrillation with rapid ventricular response Cardizem bolus, PO cardizem tid, telemetry monitoring, CTA chest showed no PE, Anticoagulated with eliquis. Cardioogy counsulted Ascending Aorta Aneurysm - 4.[address] of 04/30/17 Stable. Followed by at [facility] COPD exacerbation IV abx, nebulizer, steroid therapy,supplemental oxygen, NIPPV as clinically indicated, DVT prophylaxis History Interval history: no new issues overnight Hospitalist Physical - Constitutional Vitals: Temp Pulse Resp BP Pulse Ox 97.4 F L 78 24 139/94 90 06/20/17 05:32 06/20/17 08:07 06/20/17 05:32 06/20/17 08:04 06/20/17 08:04 General appearance: Present: no acute distress, well-nourished - EENT Eyes: Present: PERRL, EOM intact ENT: hearing intact, clear oral mucosa, dentition normal - Neck Neck: Present: supple, normal ROM - Respiratory Respiratory effort: normal Respiratory: bilateral: CTA - Cardiovascular Rhythm: regular Heart Sounds: Present: S1 & S2. Absent: gallop, rub - Extremities Extremities: no ischemia, No edema, Full ROM - Abdominal General gastrointestinal: soft, non-tender, non-distended, normal bowel sounds - Integumentary Integumentary: Present: clear, warm, dry - Neurologic Neurologic: CNII-XII intact, moves all extremities Results - Labs CBC & Chem 7: 06/20/17 05:20 06/20/17 05:20 Labs: Laboratory Last Values WBC 8.7 K/mm3 (4.5-11.0) 06/20/17 05:20 RBC 4.95 M/mm3 (3.65-5.03) 06/20/17 05:20 Hgb 12.5 gm/dl (10.1-14.3) 06/20/17 05:20 Hct 39.0 % (30.3-42.9) 06/20/17 05:20 MCV 79 fl (79-97) 06/20/17 05:20 MCH 25 pg (28-32) L 06/20/17 05:20 MCHC 32 % (30-34) 06/20/17 05:20 RDW 19.0 % (13.2-15.2) H 06/20/17 05:20 Plt Count 196 K/mm3 (140-440) 06/20/17 05:20 Lymph % (Auto) 7.6 % (13.4-35.0) L 06/16/17 13:43 [place] % (Auto) 7.0 % (0.0-7.3) 06/16/17 13:43 Eos % (Auto) 0.5 % (0.0-4.3) 06/16/17 13:43 Baso % (Auto) 0.7 % (0.0-1.8) 06/16/17 13:43 Lymph # 1.1 K/mm3 (1.2-5.4) L 06/16/17 13:43 [place] # 1.0 K/mm3 (0.0-0.8) H 06/16/17 13:43 Eos # 0.1 K/mm3 (0.0-0.4) 06/16/17 13:43 Baso # 0.1 K/mm3 (0.0-0.1) 06/16/17 13:43 Add Manual Diff Complete 06/20/17 05:20 Total Counted 100 06/20/17 05:20 Seg Neutrophils % [facility] 06/20/17 05:20 Seg Neuts % (Manual) 96.0 % (40.0-70.0) H 06/20/17 05:20 Band Neutrophils % 0 % 06/20/17 05:20 Lymphocytes % (Manual) 1.0 % (13.4-35.0) L 06/20/17 05:20 Reactive Lymphs % (Man) 0 % 06/20/17 05:20 Monocytes % (Manual) 3.0 % (0.0-7.3) 06/20/17 05:20 Eosinophils % (Manual) 0 % (0.0-4.3) 06/20/17 05:20 Basophils % (Manual) 0 % (0.0-1.8) 06/20/17 05:20 Metamyelocytes % 0 % 06/20/17 05:20 Myelocytes % 0 % 06/20/17 05:20 Promyelocytes % 0 % 06/20/17 05:20 Blast Cells % 0 % 06/20/17 05:20 Nucleated RBC % Not Reportable 06/20/17 05:20 Seg Neutrophils # 12.2 K/mm3 (1.8-7.7) H 06/16/17 13:43 Seg Neutrophils # Man 8.4 K/mm3 (1.8-7.7) H 06/20/17 05:20 Band Neutrophils # 0.0 K/mm3 06/20/17 05:20 Lymphocytes # (Manual) 0.1 K/mm3 (1.2-5.4) L 06/20/17 05:20 Abs React Lymphs (Man) 0.0 K/mm3 06/20/17 05:20 Monocytes # (Manual) 0.3 K/mm3 (0.0-0.8) 06/20/17 05:20 Eosinophils # (Manual) 0.0 K/mm3 (0.0-0.4) 06/20/17 05:20 Basophils # (Manual) 0.0 K/mm3 (0.0-0.1) 06/20/17 05:20 Metamyelocytes # 0.0 K/mm3 06/20/17 05:20 Myelocytes # 0.0 K/mm3 06/20/17 05:20 Promyelocytes # 0.0 K/mm3 06/20/17 05:20 Blast Cells # 0.0 K/mm3 06/20/17 05:20 WBC Morphology Not Reportable 06/20/17 05:20 Hypersegmented Neuts Not Reportable 06/20/17 05:20 Hyposegmented Neuts Not Reportable 06/20/17 05:20 Hypogranular Neuts Not Reportable 06/20/17 05:20 Smudge Cells Not Reportable 06/20/17 05:20 Toxic Granulation Not Reportable 06/20/17 05:20 Toxic Vacuolation Not Reportable 06/20/17 05:20 Dohle Bodies Not Reportable 06/20/17 05:20 Pelger-Huet Anomaly Not Reportable 06/20/17 05:20 Antonio Rods Not Reportable 06/20/17 05:20 Platelet Estimate Consistent w auto 06/20/17 05:20 Clumped Platelets Not Reportable 06/20/17 05:20 Plt Clumps, EDTA Not Reportable 06/20/17 05:20 Large Platelets 1+ 06/20/17 05:20 Giant Platelets Not Reportable 06/20/17 05:20 Platelet Satelliting Not Reportable 06/20/17 05:20 Plt Morphology Comment Not Reportable 06/20/17 05:20 RBC Morphology Not Reportable 06/20/17 05:20 Dimorphic RBCs Not Reportable 06/20/17 05:20 Polychromasia Not Reportable 06/20/17 05:20 Hypochromasia 1+ 06/20/17 05:20 Poikilocytosis Not Reportable 06/20/17 05:20 Anisocytosis 1+ 06/20/17 05:20 Microcytosis Not Reportable 06/20/17 05:20 Macrocytosis Not Reportable 06/20/17 05:20 Spherocytes Not Reportable 06/20/17 05:20 Pappenheimer Bodies Not Reportable 06/20/17 05:20 Sickle Cells Not Reportable 06/20/17 05:20 Target Cells Not Reportable 06/20/17 05:20 Tear Drop Cells Not Reportable 06/20/17 05:20 Ovalocytes 1+ 06/20/17 05:20 Helmet Cells Not Reportable 06/20/17 05:20 [place] Bodies Not Reportable 06/20/17 05:20 [place] Rings Not Reportable 06/20/17 05:20 [place] Cells Not Reportable 06/20/17 05:20 Bite Cells Not Reportable 06/20/17 05:20 Crenated Cell Not Reportable 06/20/17 05:20 Elliptocytes Few 06/20/17 05:20 Acanthocytes (Spur) Not Reportable 06/20/17 05:20 Rouleaux Not Reportable 06/20/17 05:20 Hemoglobin C Crystals Not Reportable 06/20/17 05:20 Schistocytes Not Reportable 06/20/17 05:20 Malaria parasites Not Reportable 06/20/17 05:20 [place]rad Bodies Not Reportable 06/20/17 05:20 Hem Pathologist Commnt No 06/20/17 05:20 PT 16.9 Sec. (12.2-14.9) H 06/16/17 13:43 INR 1.30 (0.87-1.13) H 06/16/17 13:43 APTT 32.9 Sec. (24.2-36.6) 06/16/17 13:43 D-Dimer 328.38 ng/mlDDU (0-234) H 06/16/17 13:43 POC ABG pH 7.379 (7.35-7.45) 06/16/17 15:31 POC ABG pCO2 37.3 (35-45) 06/16/17 15:31 POC ABG pO2 57 (80-105) L 06/16/17 15:31 POC ABG HCO3 22.0 06/16/17 15:31 POC ABG Total CO2 23 06/16/17 15:31 POC ABG O2 Sat 89 06/16/17 15:31 POC ABG Base Excess -3 06/16/17 15:31 FiO2 45 % 06/16/17 15:31 Sodium 146 mmol/L (137-145) H 06/20/17 05:20 Potassium 3.4 mmol/L (3.6-5.0) L 06/20/17 05:20 Chloride 103.6 mmol/L (98-107) 06/20/17 05:20 Carbon Dioxide 28 mmol/L (22-30) 06/20/17 05:20 Anion Gap 18 mmol/L 06/20/17 05:20 BUN 33 mg/dL (7-17) H 06/20/17 05:20 Creatinine 0.9 mg/dL (0.7-1.2) 06/20/17 05:20 Estimated GFR > 60 ml/min 06/20/17 05:20 BUN/Creatinine Ratio 37 % 06/20/17 05:20 Glucose 132 mg/dL (65-100) H 06/20/17 05:20 POC Glucose 196 (70-105) H 06/19/17 16:15 Lactic Acid 1.80 mmol/L (0.7-2.0) 06/17/17 00:02 Calcium 9.1 mg/dL (8.4-10.2) 06/20/17 05:20 Phosphorus 3.70 mg/dL (2.5-4.5) 06/18/17 04:47 Magnesium 2.40 mg/dL (1.7-2.3) H 06/18/17 04:47 Total Bilirubin 0.30 mg/dL (0.1-1.2) 06/20/17 05:20 Direct Bilirubin 0.2 mg/dL (0-0.2) 06/16/17 14:28 Indirect Bilirubin 0.4 mg/dL 06/16/17 14:28 AST 51 units/L (5-40) H 06/20/17 05:20 ALT 70 units/L (7-56) H 06/20/17 05:20 Alkaline Phosphatase 54 units/L (35-129) 06/20/17 05:20 Troponin T < 0.010 ng/mL (0.00-0.029) 06/16/17 13:43 NT-Pro-B Natriuret Pep 3968 pg/mL (0-900) H 06/16/17 13:43 Total Protein 6.2 g/dL (6.3-8.2) L 06/20/17 05:20 Albumin 3.4 g/dL (3.9-5) L 06/20/17 05:20 Albumin/Globulin Ratio 1.2 % 06/20/17 05:20 Urine Color Yellow (Yellow) 06/16/17 Unknown Urine Turbidity Clear (Clear) 06/16/17 Unknown Urine pH 5.0 (5.0-7.0) 06/16/17 Unknown Ur Specific [place] 1.013 (1.003-1.030) 06/16/17 Unknown Urine Protein 30 mg/dl mg/dL (Negative) 06/16/17 Unknown Urine Glucose (UA) Neg mg/dL (Negative) 06/16/17 Unknown Urine Ketones Neg mg/dL (Negative) 06/16/17 Unknown Urine Blood Neg (Negative) 06/16/17 Unknown Urine Nitrite Neg (Negative) 06/16/17 Unknown Urine Bilirubin Neg (Negative) 06/16/17 Unknown Urine Urobilinogen < 2.0 mg/dL (<2.0) 06/16/17 Unknown Ur Leukocyte Esterase Neg (Negative) 06/16/17 Unknown Urine WBC (Auto) 1.0 /HPF (0.0-6.0) 06/16/17 Unknown Urine RBC (Auto) 1.0 /HPF (0.0-6.0) 06/16/17 Unknown U Epithel Cells (Auto) < 1.0 /HPF (0-13.0) 06/16/17 Unknown Urine Bacteria (Auto) 2+ /HPF (Negative) 06/16/17 Unknown Urine Mucus Few /HPF 06/16/17 Unknown Blood Type A POSITIVE 06/16/17 14:28 Antibody Screen Negative 06/16/17 14:28
--- NOTE | 2017-06-20 10:16 | Progress Note ---
Assessment and Plan Paroxysmal atrial fibrillation with RVR Acute hypoxic respiratory failure hypercougable state secondary to afib ? PNA v. bronchitis v. COPD exac ? Sepsis / lactic acidosis HTN CKD Ascending aortic aneurysm 4.[address] done 04/30/2017 rec: cont lopressor to q8 and cont elquis and cont pulmonary treatment, consider LTAC for patient's respiratory status Subjective Date of service: 06/20/17 Principal diagnosis: sepsis, Acute respiratory failure Interval history: pt sitting at edge of bed, on ventimask, no chest pain but sob is present. Objective Vital Signs Temp Pulse Pulse Resp Resp BP BP 06/20/17 08:07 78 06/20/17 08:04 90 139/94 06/20/17 07:30 82 20 06/20/17 07:20 79 20 06/20/17 06:26 70 119/69 06/20/17 05:32 97.4 F L 82 24 118/62 06/20/17 02:45 88 21 06/20/17 02:20 75 20 06/20/17 00:31 97.2 F L 85 22 119/70 06/19/17 23:06 80 06/19/17 22:35 80 116/69 06/19/17 20:16 80 17 06/19/17 20:13 98.5 F 98 H 24 116/69 06/19/17 19:53 80 16 06/19/17 19:51 06/19/17 17:31 92 H 06/19/17 16:59 97.3 F L 96 H 20 122/70 06/19/17 16:06 97.3 F L 89 18 122/70 06/19/17 16:00 83 18 06/19/17 15:48 85 17 06/19/17 12:24 97.6 F 76 20 101/43 06/19/17 12:03 97.6 F 82 20 101/43 Pulse Ox 06/20/17 08:07 06/20/17 08:04 90 06/20/17 07:30 06/20/17 07:20 94 06/20/17 06:26 06/20/17 05:32 96 06/20/17 02:45 06/20/17 02:20 06/20/17 00:31 92 06/19/17 23:06 06/19/17 22:35 06/19/17 20:16 06/19/17 20:13 96 06/19/17 19:53 06/19/17 19:51 96 06/19/17 17:31 06/19/17 16:59 96 06/19/17 16:06 95 06/19/17 16:00 06/19/17 15:48 06/19/17 12:24 92 06/19/17 12:03 91 - Physical Examination General: Other (appears to be chronically ill and in distress due to her dyspnea and fatigue) HEENT: Positive: PERRL, Normocephaly, Mucus Membranes Moist Neck: Positive: neck supple, trachea midline Cardiac: Positive: Regular Rhythm Lungs: Positive: Decreased Breath Sounds, Rhonchi Neuro: Positive: Grossly Intact Abdomen: Positive: Soft. Negative: Tender Skin: Positive: Clear. Negative: Rash, Wound Musculoskeletal: No Fluid Collection, No Pain, Normal Range of Motion Extremities: Absent: edema - Labs and Meds Cardiac Enzymes 06/20/17 Range/Units 05:20 AST 51 H (5-40) units/L CBC 06/20/17 Range/Units 05:20 WBC 8.7 (4.5-11.0) K/mm3 RBC 4.95 (3.65-5.03) M/mm3 Hgb 12.5 (10.1-14.3) gm/dl Hct 39.0 (30.3-42.9) % Plt Count 196 (140-440) K/mm3 Comprehensive Metabolic Panel 06/20/17 Range/Units 05:20 Sodium 146 H (137-145) mmol/L Potassium 3.4 L (3.6-5.0) mmol/L Chloride 103.6 (98-107) mmol/L Carbon Dioxide 28 (22-30) mmol/L BUN 33 H (7-17) mg/dL Creatinine 0.9 (0.7-1.2) mg/dL Glucose 132 H (65-100) mg/dL Calcium 9.1 (8.4-10.2) mg/dL AST 51 H (5-40) units/L ALT 70 H (7-56) units/L Alkaline Phosphatase 54 (35-129) units/L Total Protein 6.2 L (6.3-8.2) g/dL Albumin 3.4 L (3.9-5) g/dL - Imaging and Cardiology EKG: report reviewed, image reviewed Echo: report reviewed ( 01/2017 showed EF 60%, LA and RA severely dilated, mild AR, mild to mod MR) - Telemetry EKG Rhythm: Atrial Fibrillation (pt is paroxysmal atrial fibrillation with controlled ventricle rate)
[2017-06-20] MEDS: ELIQUIS PO SCH (21:49)
[2017-06-21] MEDS ORDERED: PROVENTIL IH PRN (00:55)
[2017-06-21] MEDS: ELIQUIS PO SCH ×3 (04:33→21:55)
[2017-06-21 05:32] LABS: Hematocrit 39.4 % (30.3-42.9); Hemoglobin 12.4 gm/dl (10.1-14.3); Lymphocytes # (Auto) 0.4 K/mm3 (1.2-5.4); Lymphocytes % (Auto) 3.2 % (13.4-35.0); Mean Corpuscular HGB Conc 31 % (30-34); Mean Corpuscular Volume 79 fl (79-97); Monocytes % (Auto) 8.5 % (0.0-7.3); Platelet Count 199 K/mm3 (140-440); Red Cell Distribution Width 18.9 % (13.2-15.2)
[2017-06-21 05:35] LABS: Mean Corpuscular Hemoglobin 25 pg (28-32)
[2017-06-21 05:51] LABS: BUN/Creatinine Ratio 33; Blood Urea Nitrogen 30 mg/dL (7-17); Calcium 8.9 mg/dL (8.4-10.2); Hemolysis Index 18
[2017-06-21] MEDS: DUONEB *Not for PRN Use IH SCH ×3 (07:18→20:31)
[2017-06-21] MEDS: LOPRESSOR PO SCH ×4 (07:35→21:55)
[2017-06-21] MEDS: ZITHROMAX PO SCH ×2 (09:20→19:49)
--- NOTE | 2017-06-21 10:08 | Progress Note ---
Assessment and Plan Assessment and plan: Sepsis Elevated lactic acid level and Leukocytosis--resolved Cont. Sepsis protocol: IV abx, IVF, monitor uop q shift, Blood culture, - no growth so far blood cultures, NIPPV as clinically indicated- -patient, however, refuses Acute Hypoxemic respiratory failure Supplemental oxygen, nebs, aspiration precautions, monitor uop q shift, incentive spirometry Acute COPD exacerbation. Solu-Medrol 60 mg IV every 8 hours. Nebulizer treatment. Supplemental oxygen. Pulmonary consultation. Acute bronchitis Continue IV antibiotics Atrial fibrillation with rapid ventricular response Cardizem bolus, PO cardizem tid, telemetry monitoring, CTA chest showed no PE, Anticoagulated with eliquis. Cardiology following Ascending Aorta Aneurysm - 4.[address] of 04/30/17 Stable. Followed by at [facility] DVT prophylaxis History Interval history: no new issues overnight Hospitalist Physical - Constitutional Vitals: Temp Pulse Resp BP Pulse Ox 97.6 F 88 20 128/70 97 06/21/17 07:29 06/21/17 07:35 06/21/17 07:29 06/21/17 07:35 06/21/17 07:29 General appearance: Present: no acute distress, well-nourished - EENT Eyes: Present: PERRL, EOM intact ENT: hearing intact, clear oral mucosa, dentition normal - Neck Neck: Present: supple, normal ROM - Respiratory Respiratory effort: normal Respiratory: bilateral: diminished, rhonchi, wheezing - Cardiovascular Rhythm: regular Heart Sounds: Present: S1 & S2. Absent: gallop, rub - Extremities Extremities: no ischemia, No edema, Full ROM - Abdominal General gastrointestinal: soft, non-tender, non-distended, normal bowel sounds - Integumentary Integumentary: Present: clear, warm, dry - Neurologic Neurologic: CNII-XII intact, moves all extremities Results - Labs CBC & Chem 7: 06/21/17 05:01 06/21/17 05:01 Labs: Laboratory Last Values WBC 11.6 K/mm3 (4.5-11.0) H 06/21/17 05:01 RBC 5.00 M/mm3 (3.65-5.03) 06/21/17 05:01 Hgb 12.4 gm/dl (10.1-14.3) 06/21/17 05:01 Hct 39.4 % (30.3-42.9) 06/21/17 05:01 MCV 79 fl (79-97) 06/21/17 05:01 MCH 25 pg (28-32) L 06/21/17 05:01 MCHC 31 % (30-34) 06/21/17 05:01 RDW 18.9 % (13.2-15.2) H 06/21/17 05:01 Plt Count 199 K/mm3 (140-440) 06/21/17 05:01 Lymph % (Auto) 3.2 % (13.4-35.0) L 06/21/17 05:01 Dukes % (Auto) 8.5 % (0.0-7.3) H 06/21/17 05:01 Eos % (Auto) 0.0 % (0.0-4.3) 06/21/17 05:01 Baso % (Auto) 0.0 % (0.0-1.8) 06/21/17 05:01 Lymph # 0.4 K/mm3 (1.2-5.4) L 06/21/17 05:01 Dukes # 1.0 K/mm3 (0.0-0.8) H 06/21/17 05:01 Eos # 0.0 K/mm3 (0.0-0.4) 06/21/17 05:01 Baso # 0.0 K/mm3 (0.0-0.1) 06/21/17 05:01 Add Manual Diff Complete 06/20/17 05:20 Total Counted 100 06/20/17 05:20 Seg Neutrophils % 88.3 % (40.0-70.0) H 06/21/17 05:01 Seg Neuts % (Manual) 96.0 % (40.0-70.0) H 06/20/17 05:20 Band Neutrophils % 0 % 06/20/17 05:20 Lymphocytes % (Manual) 1.0 % (13.4-35.0) L 06/20/17 05:20 Reactive Lymphs % (Man) 0 % 06/20/17 05:20 Monocytes % (Manual) 3.0 % (0.0-7.3) 06/20/17 05:20 Eosinophils % (Manual) 0 % (0.0-4.3) 06/20/17 05:20 Basophils % (Manual) 0 % (0.0-1.8) 06/20/17 05:20 Metamyelocytes % 0 % 06/20/17 05:20 Myelocytes % 0 % 06/20/17 05:20 Promyelocytes % 0 % 06/20/17 05:20 Blast Cells % 0 % 06/20/17 05:20 Nucleated RBC % Not Reportable 06/20/17 05:20 Seg Neutrophils # 10.3 K/mm3 (1.8-7.7) H 06/21/17 05:01 Seg Neutrophils # Man 8.4 K/mm3 (1.8-7.7) H 06/20/17 05:20 Band Neutrophils # 0.0 K/mm3 06/20/17 05:20 Lymphocytes # (Manual) 0.1 K/mm3 (1.2-5.4) L 06/20/17 05:20 Abs React Lymphs (Man) 0.0 K/mm3 06/20/17 05:20 Monocytes # (Manual) 0.3 K/mm3 (0.0-0.8) 06/20/17 05:20 Eosinophils # (Manual) 0.0 K/mm3 (0.0-0.4) 06/20/17 05:20 Basophils # (Manual) 0.0 K/mm3 (0.0-0.1) 06/20/17 05:20 Metamyelocytes # 0.0 K/mm3 06/20/17 05:20 Myelocytes # 0.0 K/mm3 06/20/17 05:20 Promyelocytes # 0.0 K/mm3 06/20/17 05:20 Blast Cells # 0.0 K/mm3 06/20/17 05:20 WBC Morphology Not Reportable 06/20/17 05:20 Hypersegmented Neuts Not Reportable 06/20/17 05:20 Hyposegmented Neuts Not Reportable 06/20/17 05:20 Hypogranular Neuts Not Reportable 06/20/17 05:20 Smudge Cells Not Reportable 06/20/17 05:20 Toxic Granulation Not Reportable 06/20/17 05:20 Toxic Vacuolation Not Reportable 06/20/17 05:20 Dohle Bodies Not Reportable 06/20/17 05:20 Pelger-Huet Anomaly Not Reportable 06/20/17 05:20 Antonio Rods Not Reportable 06/20/17 05:20 Platelet Estimate Consistent w auto 06/20/17 05:20 Clumped Platelets Not Reportable 06/20/17 05:20 Plt Clumps, EDTA Not Reportable 06/20/17 05:20 Large Platelets 1+ 06/20/17 05:20 Giant Platelets Not Reportable 06/20/17 05:20 Platelet Satelliting Not Reportable 06/20/17 05:20 Plt Morphology Comment Not Reportable 06/20/17 05:20 RBC Morphology Not Reportable 06/20/17 05:20 Dimorphic RBCs Not Reportable 06/20/17 05:20 Polychromasia Not Reportable 06/20/17 05:20 Hypochromasia 1+ 06/20/17 05:20 Poikilocytosis Not Reportable 06/20/17 05:20 Anisocytosis 1+ 06/20/17 05:20 Microcytosis Not Reportable 06/20/17 05:20 Macrocytosis Not Reportable 06/20/17 05:20 Spherocytes Not Reportable 06/20/17 05:20 Pappenheimer Bodies Not Reportable 06/20/17 05:20 Sickle Cells Not Reportable 06/20/17 05:20 Target Cells Not Reportable 06/20/17 05:20 Tear Drop Cells Not Reportable 06/20/17 05:20 Ovalocytes 1+ 06/20/17 05:20 Helmet Cells Not Reportable 06/20/17 05:20 Perez-[place] Bodies Not Reportable 06/20/17 05:20 [place] Rings Not Reportable 06/20/17 05:20 [place] Cells Not Reportable 06/20/17 05:20 Bite Cells Not Reportable 06/20/17 05:20 Crenated Cell Not Reportable 06/20/17 05:20 Elliptocytes Few 06/20/17 05:20 Acanthocytes (Spur) Not Reportable 06/20/17 05:20 Rouleaux Not Reportable 06/20/17 05:20 Hemoglobin C Crystals Not Reportable 06/20/17 05:20 Schistocytes Not Reportable 06/20/17 05:20 Malaria parasites Not Reportable 06/20/17 05:20 Konrad Bodies Not Reportable 06/20/17 05:20 Hem Pathologist Commnt No 06/20/17 05:20 PT 16.9 Sec. (12.2-14.9) H 06/16/17 13:43 INR 1.30 (0.87-1.13) H 06/16/17 13:43 APTT 32.9 Sec. (24.2-36.6) 06/16/17 13:43 D-Dimer 328.38 ng/mlDDU (0-234) H 06/16/17 13:43 POC ABG pH 7.379 (7.35-7.45) 06/16/17 15:31 POC ABG pCO2 37.3 (35-45) 06/16/17 15:31 POC ABG pO2 57 (80-105) L 06/16/17 15:31 POC ABG HCO3 22.0 06/16/17 15:31 POC ABG Total CO2 23 06/16/17 15:31 POC ABG O2 Sat 89 06/16/17 15:31 POC ABG Base Excess -3 06/16/17 15:31 FiO2 45 % 06/16/17 15:31 Sodium 146 mmol/L (137-145) H 06/21/17 05:01 Potassium 3.4 mmol/L (3.6-5.0) L 06/21/17 05:01 Chloride 103.7 mmol/L (98-107) 06/21/17 05:01 Carbon Dioxide 30 mmol/L (22-30) 06/21/17 05:01 Anion Gap 16 mmol/L 06/21/17 05:01 BUN 30 mg/dL (7-17) H 06/21/17 05:01 Creatinine 0.9 mg/dL (0.7-1.2) 06/21/17 05:01 Estimated GFR > 60 ml/min 06/21/17 05:01 BUN/Creatinine Ratio 33 % 06/21/17 05:01 Glucose 110 mg/dL (65-100) H 06/21/17 05:01 POC Glucose 196 (70-105) H 06/19/17 16:15 Lactic Acid 1.80 mmol/L (0.7-2.0) 06/17/17 00:02 Calcium 8.9 mg/dL (8.4-10.2) 06/21/17 05:01 Phosphorus 3.70 mg/dL (2.5-4.5) 06/18/17 04:47 Magnesium 2.40 mg/dL (1.7-2.3) H 06/18/17 04:47 Total Bilirubin 0.30 mg/dL (0.1-1.2) 06/20/17 05:20 Direct Bilirubin 0.2 mg/dL (0-0.2) 06/16/17 14:28 Indirect Bilirubin 0.4 mg/dL 06/16/17 14:28 AST 51 units/L (5-40) H 06/20/17 05:20 ALT 70 units/L (7-56) H 06/20/17 05:20 Alkaline Phosphatase 54 units/L (35-129) 06/20/17 05:20 Troponin T < 0.010 ng/mL (0.00-0.029) 06/16/17 13:43 NT-Pro-B Natriuret Pep 3968 pg/mL (0-900) H 06/16/17 13:43 Total Protein 6.2 g/dL (6.3-8.2) L 06/20/17 05:20 Albumin 3.4 g/dL (3.9-5) L 06/20/17 05:20 Albumin/Globulin Ratio 1.2 % 06/20/17 05:20 Urine Color Yellow (Yellow) 06/16/17 Unknown Urine Turbidity Clear (Clear) 06/16/17 Unknown Urine pH 5.0 (5.0-7.0) 06/16/17 Unknown Ur Specific Mott 1.013 (1.003-1.030) 06/16/17 Unknown Urine Protein 30 mg/dl mg/dL (Negative) 06/16/17 Unknown Urine Glucose (UA) Neg mg/dL (Negative) 06/16/17 Unknown Urine Ketones Neg mg/dL (Negative) 06/16/17 Unknown Urine Blood Neg (Negative) 06/16/17 Unknown Urine Nitrite Neg (Negative) 06/16/17 Unknown Urine Bilirubin Neg (Negative) 06/16/17 Unknown Urine Urobilinogen < 2.0 mg/dL (<2.0) 06/16/17 Unknown Ur Leukocyte Esterase Neg (Negative) 06/16/17 Unknown Urine WBC (Auto) 1.0 /HPF (0.0-6.0) 06/16/17 Unknown Urine RBC (Auto) 1.0 /HPF (0.0-6.0) 06/16/17 Unknown U Epithel Cells (Auto) < 1.0 /HPF (0-13.0) 06/16/17 Unknown Urine Bacteria (Auto) 2+ /HPF (Negative) 06/16/17 Unknown Urine Mucus Few /HPF 06/16/17 Unknown Blood Type A POSITIVE 06/16/17 14:28 Antibody Screen Negative 06/16/17 14:28
--- NOTE | 2017-06-21 11:31 | Progress Note ---
Assessment and Plan Paroxysmal atrial fibrillation with RVR Acute hypoxic respiratory failure hypercougable state secondary to afib ? PNA v. bronchitis v. COPD exac ? Sepsis / lactic acidosis HTN CKD Ascending aortic aneurysm 4.[address] done 04/30/2017 rec: cont lopressor to q8 and cont elquis and cont pulmonary treatment, consider LTAC for patient's respiratory status, pt lungs have improved, Subjective Date of service: 06/21/17 Principal diagnosis: sepsis, Acute respiratory failure Interval history: pt on vent mask and sob is better Objective Vital Signs Temp Pulse Pulse Resp Resp BP Pulse Ox 06/21/17 10:00 82 06/21/17 07:35 88 128/70 06/21/17 07:29 97.6 F 85 20 152/85 97 06/21/17 07:28 85 20 06/21/17 07:18 76 18 96 06/21/17 04:04 98.3 F 88 20 128/70 94 06/21/17 00:58 97.9 F 92 H 17 117/72 94 06/20/17 23:53 97 H 06/20/17 21:42 97 H 88/37 06/20/17 20:50 87 20 06/20/17 20:40 92 H 20 91 06/20/17 19:52 98.3 F 79 20 88/37 93 06/20/17 17:13 99 H 93 06/20/17 14:27 95 06/20/17 13:55 94 H 20 06/20/17 13:45 89 20 06/20/17 11:48 79 92 - Physical Examination General: Other (appears to be chronically ill and in distress due to her dyspnea and fatigue) HEENT: Positive: PERRL, Normocephaly, Mucus Membranes Moist Neck: Positive: neck supple, trachea midline Cardiac: Positive: Irregularly Regular Lungs: Positive: Decreased Breath Sounds Neuro: Positive: Grossly Intact Abdomen: Positive: Soft. Negative: Tender Skin: Positive: Clear. Negative: Rash, Wound Musculoskeletal: No Fluid Collection, No Pain, Normal Range of Motion Extremities: Absent: edema - Labs and Meds CBC 06/21/17 Range/Units 05:01 WBC 11.6 H (4.5-11.0) K/mm3 RBC 5.00 (3.65-5.03) M/mm3 Hgb 12.4 (10.1-14.3) gm/dl Hct 39.4 (30.3-42.9) % Plt Count 199 (140-440) K/mm3 Lymph # 0.4 L (1.2-5.4) K/mm3 [place] # 1.0 H (0.0-0.8) K/mm3 Eos # 0.0 (0.0-0.4) K/mm3 Baso # 0.0 (0.0-0.1) K/mm3 Comprehensive Metabolic Panel 06/21/17 Range/Units 05:01 Sodium 146 H (137-145) mmol/L Potassium 3.4 L (3.6-5.0) mmol/L Chloride 103.7 (98-107) mmol/L Carbon Dioxide 30 (22-30) mmol/L BUN 30 H (7-17) mg/dL Creatinine 0.9 (0.7-1.2) mg/dL Glucose 110 H (65-100) mg/dL Calcium 8.9 (8.4-10.2) mg/dL - Imaging and Cardiology EKG: report reviewed, image reviewed Echo: report reviewed ( 01/2017 showed EF 60%, LA and RA severely dilated, mild AR, mild to mod MR) - Telemetry EKG Rhythm: Atrial Fibrillation (80's)
--- NOTE | 2017-06-21 15:19 | Consultation ---
History of Present Illness Consult date: 06/21/17 Reason for consult: COPD, pneumonia History of present illness: History of present illness: 77 YO Female with Atrial Fib, HTN, COPD, Asthma, CHF presents to ED for evaluation. Pt states that she has experienced shortness of breath for the past 3 days with worsening symptoms over the past 6 hours. Pt also acknowledges feeling like her heart is beating too fast. EMS was notified and upon arrival patient was found to have hypoxemic respiratory failure with oxygen saturation in the 80's. Pt treated with nebulizer and steroid therapy and transported to [facility] for evaluation. Pt seen and evaluated in ED and found to have Atrial Fib with RVR, As well as sepsis, pneumonia with exacerbation of COPD. Pt was initiated on sepsis protocol, treated with NIPPV and admitted to telemetry. Patient has remote history of smoking, quit smoking 40 years ago. She denied any significant shortness of breath or cough or chest pain. A CT scan of the chest on admission show significant atelectatic changes in the right middle lobe and lingula. Patient is being treated as pneumonia with antibiotics and steroids. Past History Past Medical History: atrial fib, heart failure, hypertension Past Surgical History: No surgical history, Other (reviewed) Social history: . denies: smoking, alcohol abuse, prescription drug abuse Family history: hypertension Medications and Allergies Allergies Allergy/AdvReac Type Severity Reaction Status Date / Time No Known Allergies Allergy Unverified 06/16/17 13:34 Home Medications Medication Instructions Recorded Confirmed Last Taken Type Albuterol Sulfate 1.25 mg IH TID 06/16/17 06/16/17 Unknown History Albuterol Sulfate [Proair 2 puff IH Q6H 06/16/17 06/16/17 Unknown History Respiclick] Apixaban [Eliquis] 2.5 mg PO BID 06/16/17 06/16/17 Unknown History AtorvaSTATin [Lipitor] 20 mg PO DAILY 06/16/17 06/16/17 Unknown History Levofloxacin [Levaquin] 750 mg PO DAILY 06/16/17 06/16/17 Unknown History Saccharomyces Boulardii [Probiotic] 250 mg PO BID 06/16/17 06/16/17 Unknown History amLODIPine [Norvasc] 10 mg PO DAILY 06/16/17 06/16/17 Unknown History Active Meds: Active Medications Acetaminophen (Tylenol) 650 mg PO Q4H PRN PRN Reason: Pain MILD(1-3)/Fever >100.5/CALDERÓN Albuterol (Proventil) 2.5 mg IH Q3HRT PRN PRN Reason: Wheezing Albuterol/Ipratropium (Duoneb *Not For Prn Use*) 1 ampul IH TIDRT [facility] Last Admin: 06/21/17 13:38 Dose: 1 ampul Apixaban (Eliquis) 2.5 mg PO Q12HR LILIBETH PRN Reason: Protocol Last Admin: 06/21/17 09:20 Dose: 2.5 mg Azithromycin (Zithromax) 500 mg PO Q24H [facility] Last Admin: 06/21/17 09:20 Dose: 500 mg Bisacodyl (Dulcolax) 10 mg [place] QDAY PRN PRN Reason: Constipation unrelieved by MOM Ceftriaxone Sodium 2 gm/ (Sodium Chloride) 20 mls @ 20 mls/10 min IV Q24H [facility] Last Admin: 06/19/17 18:01 Dose: 20 mls/10 min Lorazepam (Ativan) 0.5 mg IV Q4H PRN PRN Reason: Anxiety Magnesium Hydroxide (Milk Of Magnesia) 30 ml PO Q4H PRN PRN Reason: Constipation Methylprednisolone Sodium Succinate (Solu-Medrol) 60 mg IV Q8H [facility] Last Admin: 06/21/17 09:20 Dose: 60 mg Metoprolol Tartrate (Lopressor) 25 mg PO Q8HR [facility] Last Admin: 06/21/17 07:35 Dose: 25 mg Ondansetron HCl (Zofran) 4 mg IV Q8H PRN PRN Reason: N/V unrelieved by Reglan Review of Systems All systems: negative Physical Examination Vital signs: Vital Signs Temp Pulse Resp BP Pulse Ox 97.3 F L 118 H 30 H 118/67 91 06/16/17 13:34 06/16/17 13:34 06/16/17 13:34 06/16/17 13:34 06/16/17 13:34 General appearance: no acute distress Eyes: non-icteric ENT: oropharynx moist Neck: supple Ascultation: Bilateral: diminished breath sounds Cardiovascular: irregular rhythm Gastrointestinal: normoactive bowel sounds, soft, non-tender Extremities: no cyanosis Musculoskeletal: no deformities Gait: other (not examined) mood appropriate, affect normal Results - Laboratory Findings CBC and BMP: 06/21/17 05:01 06/21/17 05:01 ABG POC ABG pH 7.379 (7.35-7.45) 06/16/17 15:31 POC ABG pCO2 37.3 (35-45) 06/16/17 15:31 POC ABG pO2 57 (80-105) L 06/16/17 15:31 POC ABG HCO3 22.0 06/16/17 15:31 POC ABG Total CO2 23 06/16/17 15:31 POC ABG O2 Sat 89 06/16/17 15:31 PT/INR, D-dimer PT 16.9 Sec. (12.2-14.9) H 06/16/17 13:43 INR 1.30 (0.87-1.13) H 06/16/17 13:43 D-Dimer 328.38 ng/mlDDU (0-234) H 06/16/17 13:43 Abnormal lab findings: Abnormal Labs 06/16/17 06/16/17 06/16/17 13:43 13:43 13:43 WBC 14.4 H RBC 5.51 H Hct 44.1 H MCH 24 L RDW 19.7 H Lymph % (Auto) 7.6 L [place] % (Auto) Lymph # 1.1 L [place] # 1.0 H Seg Neutrophils % 84.2 H Seg Neuts % (Manual) Lymphocytes % (Manual) Seg Neutrophils # 12.2 H Seg Neutrophils # Man Lymphocytes # (Manual) PT 16.9 H INR 1.30 H D-Dimer POC ABG pO2 Sodium Potassium Carbon Dioxide 20 L BUN 34 H Creatinine 1.3 H Glucose 107 H POC Glucose Lactic Acid Magnesium AST ALT NT-Pro-B Natriuret Pep 3968 H Total Protein Albumin 06/16/17 06/16/17 06/16/17 13:43 14:28 14:28 WBC RBC Hct MCH RDW Lymph % (Auto) [place] % (Auto) Lymph # [place] # Seg Neutrophils % Seg Neuts % (Manual) Lymphocytes % (Manual) Seg Neutrophils # Seg Neutrophils # Man Lymphocytes # (Manual) PT INR D-Dimer 328.38 H POC ABG pO2 Sodium Potassium Carbon Dioxide BUN Creatinine Glucose POC Glucose Lactic Acid 2.10 H* Magnesium 3.40 H AST ALT NT-Pro-B Natriuret Pep Total Protein Albumin 06/16/17 06/16/17 06/16/17 15:31 18:59 18:59 WBC RBC Hct MCH RDW Lymph % (Auto) [place] % (Auto) Lymph # [place] # Seg Neutrophils % Seg Neuts % (Manual) Lymphocytes % (Manual) Seg Neutrophils # Seg Neutrophils # Man Lymphocytes # (Manual) PT INR D-Dimer POC ABG pO2 57 L Sodium Potassium Carbon Dioxide 21 L BUN 37 H Creatinine 1.4 H Glucose 141 H POC Glucose Lactic Acid 2.10 H* Magnesium AST ALT NT-Pro-B Natriuret Pep Total Protein Albumin 06/18/17 06/18/17 06/19/17 04:47 04:47 04:45 WBC 12.3 H RBC Hct MCH 26 L 26 L RDW 18.8 H 18.7 H Lymph % (Auto) [place] % (Auto) Lymph # [place] # Seg Neutrophils % Seg Neuts % (Manual) 93.0 H 96.0 H Lymphocytes % (Manual) 3.0 L 1.0 L Seg Neutrophils # Seg Neutrophils # Man 11.4 H 10.4 H Lymphocytes # (Manual) 0.4 L 0.1 L PT INR D-Dimer POC ABG pO2 Sodium Potassium Carbon Dioxide BUN 30 H Creatinine Glucose 117 H POC Glucose Lactic Acid Magnesium 2.40 H AST ALT NT-Pro-B Natriuret Pep Total Protein Albumin 3.5 L 06/19/17 06/19/17 06/19/17 04:45 11:57 16:15 WBC RBC Hct MCH RDW Lymph % (Auto) [place] % (Auto) Lymph # [place] # Seg Neutrophils % Seg Neuts % (Manual) Lymphocytes % (Manual) Seg Neutrophils # Seg Neutrophils # Man Lymphocytes # (Manual) PT INR D-Dimer POC ABG pO2 Sodium Potassium Carbon Dioxide BUN 39 H Creatinine Glucose 115 H POC Glucose 268 H 196 H Lactic Acid Magnesium AST ALT NT-Pro-B Natriuret Pep Total Protein Albumin 06/20/17 06/20/17 06/21/17 05:20 05:20 05:01 WBC 11.6 H RBC Hct MCH 25 L 25 L RDW 19.0 H 18.9 H Lymph % (Auto) 3.2 L [place] % (Auto) 8.5 H Lymph # 0.4 L [place] # 1.0 H Seg Neutrophils % 88.3 H Seg Neuts % (Manual) 96.0 H Lymphocytes % (Manual) 1.0 L Seg Neutrophils # 10.3 H Seg Neutrophils # Man 8.4 H Lymphocytes # (Manual) 0.1 L PT INR D-Dimer POC ABG pO2 Sodium 146 H Potassium 3.4 L Carbon Dioxide BUN 33 H Creatinine Glucose 132 H POC Glucose Lactic Acid Magnesium AST 51 H ALT 70 H NT-Pro-B Natriuret Pep Total Protein 6.2 L Albumin 3.4 L 06/21/17 05:01 WBC RBC Hct MCH RDW Lymph % (Auto) [place] % (Auto) Lymph # [place] # Seg Neutrophils % Seg Neuts % (Manual) Lymphocytes % (Manual) Seg Neutrophils # Seg Neutrophils # Man Lymphocytes # (Manual) PT INR D-Dimer POC ABG pO2 Sodium 146 H Potassium 3.4 L Carbon Dioxide BUN 30 H Creatinine Glucose 110 H POC Glucose Lactic Acid Magnesium AST ALT NT-Pro-B Natriuret Pep Total Protein Albumin - Diagnostic Findings CT scan - chest: image reviewed (partial atelectasis of the lingula and right middle lobe) Assessment and Plan Impression: Atelectasis right middle lobe and lingula Radiographically patient does not appear to have pneumonia or infiltrate. History of smoking in the past possible COPD but doubtful Atrial fibrillation with RVR now better controlled Recommendation: Repeat PA and lateral chest x-ray If atelectatic changes persist patient may require flexible bronchoscopy. Continue with the nebulizer and antibiotic and steroid therapy for now.
[2017-06-21] MEDS: cefTRIAXone 2 GM in NACL 0.9% 20 ML IV SCH ×2 (17:27→19:50)
[2017-06-22 05:51] LABS: BUN/Creatinine Ratio 36; Blood Urea Nitrogen 29 mg/dL (7-17); Calcium 8.6 mg/dL (8.4-10.2); Hemolysis Index 30
[2017-06-22 05:54] LABS: Hematocrit 41.1 % (30.3-42.9); Hemoglobin 12.9 gm/dl (10.1-14.3); Mean Corpuscular HGB Conc 31 % (30-34); Mean Corpuscular Volume 78 fl (79-97); Platelet Count 193 K/mm3 (140-440); Red Blood Count 5.26 M/mm3 (3.65-5.03); Red Cell Distribution Width 19.1 % (13.2-15.2)
[2017-06-22] MEDS: LOPRESSOR PO SCH ×3 (06:17→21:06)
[2017-06-22 06:18] LABS: Mean Corpuscular Hemoglobin 25 pg (28-32)
[2017-06-22 07:33] LABS: Band Neutrophils # (Manual) 0.5 K/mm3; Basophils % (Manual) 0 % (0.0-1.8); Eosinophils % (Manual) 0 % (0.0-4.3); Hypochromasia 1+; Platelet Estimate Consistent w Auto; Total Cells Counted 100
--- NOTE | 2017-06-22 08:12 | XRay Report ---
CHEST 2 VIEWS INDICATION: Atelectasis. COMPARISON: 06/16/2017 CXR and 06/17/2017 CT. FINDINGS: Frontal and lateral chest radiographs now demonstrate left mid to lower lung atelectasis/consolidation/pleural fluid, now obscuring the left hemidiaphragm and partly the heart borders. Grossly stable cardiomediastinal silhouette. Mild aortic knob calcifications. Mild infiltration of the aerated left upper lobe may also now be noted. Subtle left apical shadow also makes exclusion of a small, approximately 10% pneumothorax difficult. Clear right lung. Multilevel spinal spondylosis. CONCLUSION: 1. Increased left lung pneumonia/airspace opacities, greatest toward the bases, as described. Subtle left apical pneumothorax also difficult to exclude at this time. Followup on repeat chest radiographs with better technique/positioning. 2. Other findings, as above. I phoned the above results to patient's nurse, Ms. Wren, 8 AM, 06/22/2017. Thank you for the opportunity to participate in this patient's care.
[2017-06-22] MEDS: DUONEB *Not for PRN Use IH SCH ×3 (08:24→20:28)
[2017-06-22] MEDS: ZITHROMAX PO SCH (09:01)
[2017-06-22] MEDS: ELIQUIS PO SCH ×2 (09:01→21:06)
--- NOTE | 2017-06-22 09:40 | XRay Report ---
PORTABLE CHEST INDICATION: Evaluate for pneumothorax. COMPARISON: Yesterday. FINDINGS: Portable, frontal chest radiograph, 8:52 AM, 06/22/2017 demonstrates left lower lung opacification now extending into the upper zone. Obscured cardiomediastinal silhouette. No definite left apical pneumothorax. Right lung remains clear. Numerous extrinsic artifacts. Stable demineralized bones with multilevel spinal spondylosis. CONCLUSION: No evidence of a left apical pneumothorax, though continued interval radiographic worsening of left lung opacity/consolidation/pleural fluid noted, as described. Please correlate. Thank you for the opportunity to participate in this patient's care.
--- NOTE | 2017-06-22 09:51 | Progress Note ---
Assessment and Plan Paroxysmal atrial fibrillation with RVR Acute hypoxic respiratory failure hypercougable state secondary to afib ? PNA v. bronchitis v. COPD exac ? Sepsis / lactic acidosis HTN CKD Ascending aortic aneurysm 4.[address] done 04/30/2017 rec: change to lopressor 50mg bid and cont elquis and cont pulmonary treatment , consider LTAC for patient's respiratory status, pt lungs have improved, Subjective Date of service: 06/22/17 Principal diagnosis: sepsis, Acute respiratory failure Interval history: pt lying in bed on nasal cannula Objective Vital Signs Temp Pulse Pulse Resp Resp BP BP 06/22/17 07:58 98.1 F 78 20 143/76 06/22/17 05:05 97.4 F L 77 16 136/77 06/22/17 00:13 97.4 F L 77 16 126/82 06/22/17 00:10 97.9 F 54 L 133/54 06/21/17 22:00 90 18 06/21/17 20:45 82 20 06/21/17 20:40 974 F H 80 20 139/90 06/21/17 20:33 74 20 06/21/17 19:24 97.4 F L 20 139/90 06/21/17 18:10 06/21/17 16:04 97.7 F 61 20 114/55 06/21/17 13:48 77 20 06/21/17 13:38 94 H 20 06/21/17 12:30 06/21/17 11:26 97.7 F 88 20 138/85 06/21/17 10:00 82 Pulse Ox 06/22/17 07:58 93 06/22/17 05:05 94 06/22/17 00:13 93 06/22/17 00:10 06/21/17 22:00 95 06/21/17 20:45 06/21/17 20:40 95 06/21/17 20:33 93 06/21/17 19:24 06/21/17 18:10 95 06/21/17 16:04 91 06/21/17 13:48 06/21/17 13:38 06/21/17 12:30 93 06/21/17 11:26 88 06/21/17 10:00 - Physical Examination General: Other (appears to be chronically ill and in distress due to her dyspnea and fatigue) HEENT: Positive: PERRL, Normocephaly, Mucus Membranes Moist Neck: Positive: neck supple, trachea midline Cardiac: Positive: Irregularly Regular Lungs: Positive: Decreased Breath Sounds Neuro: Positive: Grossly Intact Abdomen: Positive: Soft. Negative: Tender Skin: Positive: Clear. Negative: Rash, Wound Musculoskeletal: No Fluid Collection, No Pain, Normal Range of Motion Extremities: Absent: edema - Labs and Meds CBC 06/22/17 Range/Units 04:56 WBC 10.3 (4.5-11.0) K/mm3 RBC 5.26 H (3.65-5.03) M/mm3 Hgb 12.9 (10.1-14.3) gm/dl Hct 41.1 (30.3-42.9) % Plt Count 193 (140-440) K/mm3 Comprehensive Metabolic Panel 06/22/17 Range/Units 04:56 Sodium 145 (137-145) mmol/L Potassium 3.4 L (3.6-5.0) mmol/L Chloride 100.5 (98-107) mmol/L Carbon Dioxide 30 (22-30) mmol/L BUN 29 H (7-17) mg/dL Creatinine 0.8 (0.7-1.2) mg/dL Glucose 144 H (65-100) mg/dL Calcium 8.6 (8.4-10.2) mg/dL - Imaging and Cardiology EKG: report reviewed, image reviewed Echo: report reviewed ( 01/2017 showed EF 60%, LA and RA severely dilated, mild AR, mild to mod MR) - Telemetry EKG Rhythm: Atrial Fibrillation (in 80's)
--- NOTE | 2017-06-22 11:31 | Progress Note ---
Assessment and Plan Assessment and plan: Sepsis Elevated lactic acid level and Leukocytosis--resolved Cont. Sepsis protocol: IV abx, IVF, monitor uop q shift, Blood culture, - no growth so far blood cultures, NIPPV as clinically indicated- -patient, however, refuses Acute Hypoxemic respiratory failure Supplemental oxygen, nebs, aspiration precautions, monitor uop q shift, incentive spirometry Right middle lobe atelectasis. Consider bronchoscopy per pulmonary Acute COPD exacerbation. Solu-Medrol 60 mg IV every 8 hours. Nebulizer treatment. Supplemental oxygen. Pulmonary consultation. Acute bronchitis Continue IV antibiotics Atrial fibrillation with rapid ventricular response Lopressor has been changed to 50 mg twice a day, continue telemetry monitoring, CTA chest showed no PE, Anticoagulated with eliquis. Cardiology following Ascending Aorta Aneurysm - 4.[address] of 04/30/17 Stable. Followed by at [facility] DVT prophylaxis Disposition LTAC evaluation History Interval history: no new issues overnight Hospitalist Physical - Constitutional Vitals: Temp Pulse Resp BP Pulse Ox 98.1 F 75 18 143/76 93 06/22/17 07:58 06/22/17 10:00 06/22/17 08:10 06/22/17 07:58 06/22/17 10:00 General appearance: Present: no acute distress, well-nourished - EENT Eyes: Present: PERRL, EOM intact ENT: hearing intact, clear oral mucosa, dentition normal - Neck Neck: Present: supple, normal ROM - Respiratory Respiratory effort: normal Respiratory: bilateral: CTA - Cardiovascular Rhythm: regular Heart Sounds: Present: S1 & S2. Absent: gallop, rub - Extremities Extremities: no ischemia, No edema, Full ROM - Abdominal General gastrointestinal: soft, non-tender, non-distended, normal bowel sounds - Integumentary Integumentary: Present: clear, warm, dry - Neurologic Neurologic: CNII-XII intact, moves all extremities Results - Labs CBC & Chem 7: 06/22/17 04:56 06/22/17 04:56 Labs: Laboratory Last Values WBC 10.3 K/mm3 (4.5-11.0) 06/22/17 04:56 RBC 5.26 M/mm3 (3.65-5.03) H 06/22/17 04:56 Hgb 12.9 gm/dl (10.1-14.3) 06/22/17 04:56 Hct 41.1 % (30.3-42.9) 06/22/17 04:56 MCV 78 fl (79-97) L 06/22/17 04:56 MCH 25 pg (28-32) L 06/22/17 04:56 MCHC 31 % (30-34) 06/22/17 04:56 RDW 19.1 % (13.2-15.2) H 06/22/17 04:56 Plt Count 193 K/mm3 (140-440) 06/22/17 04:56 Lymph % (Auto) 3.2 % (13.4-35.0) L 06/21/17 05:01 [place] % (Auto) 8.5 % (0.0-7.3) H 06/21/17 05:01 Eos % (Auto) 0.0 % (0.0-4.3) 06/21/17 05:01 Baso % (Auto) 0.0 % (0.0-1.8) 06/21/17 05:01 Lymph # 0.4 K/mm3 (1.2-5.4) L 06/21/17 05:01 [place] # 1.0 K/mm3 (0.0-0.8) H 06/21/17 05:01 Eos # 0.0 K/mm3 (0.0-0.4) 06/21/17 05:01 Baso # 0.0 K/mm3 (0.0-0.1) 06/21/17 05:01 Add Manual Diff Complete 06/22/17 04:56 Total Counted 100 06/22/17 04:56 Seg Neutrophils % Site [employer] 06/22/17 04:56 Seg Neuts % (Manual) 89.0 % (40.0-70.0) H 06/22/17 04:56 Band Neutrophils % 5.0 % 06/22/17 04:56 Lymphocytes % (Manual) 2.0 % (13.4-35.0) L 06/22/17 04:56 Reactive Lymphs % (Man) 0 % 06/22/17 04:56 Monocytes % (Manual) 4.0 % (0.0-7.3) 06/22/17 04:56 Eosinophils % (Manual) 0 % (0.0-4.3) 06/22/17 04:56 Basophils % (Manual) 0 % (0.0-1.8) 06/22/17 04:56 Metamyelocytes % 0 % 06/22/17 04:56 Myelocytes % 0 % 06/22/17 04:56 Promyelocytes % 0 % 06/22/17 04:56 Blast Cells % 0 % 06/22/17 04:56 Nucleated RBC % Not Reportable 06/22/17 04:56 Seg Neutrophils # 10.3 K/mm3 (1.8-7.7) H 06/21/17 05:01 Seg Neutrophils # Man 9.2 K/mm3 (1.8-7.7) H 06/22/17 04:56 Band Neutrophils # 0.5 K/mm3 06/22/17 04:56 Lymphocytes # (Manual) 0.2 K/mm3 (1.2-5.4) L 06/22/17 04:56 Abs React Lymphs (Man) 0.0 K/mm3 06/22/17 04:56 Monocytes # (Manual) 0.4 K/mm3 (0.0-0.8) 06/22/17 04:56 Eosinophils # (Manual) 0.0 K/mm3 (0.0-0.4) 06/22/17 04:56 Basophils # (Manual) 0.0 K/mm3 (0.0-0.1) 06/22/17 04:56 Metamyelocytes # 0.0 K/mm3 06/22/17 04:56 Myelocytes # 0.0 K/mm3 06/22/17 04:56 Promyelocytes # 0.0 K/mm3 06/22/17 04:56 Blast Cells # 0.0 K/mm3 06/22/17 04:56 WBC Morphology Not Reportable 06/22/17 04:56 Hypersegmented Neuts Not Reportable 06/22/17 04:56 Hyposegmented Neuts Not Reportable 06/22/17 04:56 Hypogranular Neuts Not Reportable 06/22/17 04:56 Smudge Cells Not Reportable 06/22/17 04:56 Toxic Granulation Not Reportable 06/22/17 04:56 Toxic Vacuolation Not Reportable 06/22/17 04:56 Dohle Bodies Not Reportable 06/22/17 04:56 Pelger-Huet Anomaly Not Reportable 06/22/17 04:56 Antonio Rods Not Reportable 06/22/17 04:56 Platelet Estimate Consistent w auto 06/22/17 04:56 Clumped Platelets Not Reportable 06/22/17 04:56 Plt Clumps, EDTA Not Reportable 06/22/17 04:56 Large Platelets Not Reportable 06/22/17 04:56 Giant Platelets Not Reportable 06/22/17 04:56 Platelet Satelliting Not Reportable 06/22/17 04:56 Plt Morphology Comment Not Reportable 06/22/17 04:56 RBC Morphology Not Reportable 06/22/17 04:56 Dimorphic RBCs Not Reportable 06/22/17 04:56 Polychromasia Not Reportable 06/22/17 04:56 Hypochromasia 1+ 06/22/17 04:56 Poikilocytosis Not Reportable 06/22/17 04:56 Anisocytosis Not Reportable 06/22/17 04:56 Microcytosis Not Reportable 06/22/17 04:56 Macrocytosis Not Reportable 06/22/17 04:56 Spherocytes Not Reportable 06/22/17 04:56 Pappenheimer Bodies Not Reportable 06/22/17 04:56 Sickle Cells Not Reportable 06/22/17 04:56 Target Cells Not Reportable 06/22/17 04:56 Tear Drop Cells Not Reportable 06/22/17 04:56 Ovalocytes Not Reportable 06/22/17 04:56 Helmet Cells Not Reportable 06/22/17 04:56 [place] Bodies Not Reportable 06/22/17 04:56 [place] Rings Not Reportable 06/22/17 04:56 [place] Cells Not Reportable 06/22/17 04:56 Bite Cells Not Reportable 06/22/17 04:56 Crenated Cell Not Reportable 06/22/17 04:56 Elliptocytes Not Reportable 06/22/17 04:56 Acanthocytes (Spur) Not Reportable 06/22/17 04:56 Rouleaux Not Reportable 06/22/17 04:56 Hemoglobin C Crystals Not Reportable 06/22/17 04:56 Schistocytes Not Reportable 06/22/17 04:56 Malaria parasites Not Reportable 06/22/17 04:56 [place] Bodies Not Reportable 06/22/17 04:56 Hem Pathologist Commnt No 06/22/17 04:56 PT 16.9 Sec. (12.2-14.9) H 06/16/17 13:43 INR 1.30 (0.87-1.13) H 06/16/17 13:43 APTT 32.9 Sec. (24.2-36.6) 06/16/17 13:43 D-Dimer 328.38 ng/mlDDU (0-234) H 06/16/17 13:43 POC ABG pH 7.379 (7.35-7.45) 06/16/17 15:31 POC ABG pCO2 37.3 (35-45) 06/16/17 15:31 POC ABG pO2 57 (80-105) L 06/16/17 15:31 POC ABG HCO3 22.0 06/16/17 15:31 POC ABG Total CO2 23 06/16/17 15:31 POC ABG O2 Sat 89 06/16/17 15:31 POC ABG Base Excess -3 06/16/17 15:31 FiO2 45 % 06/16/17 15:31 Sodium 145 mmol/L (137-145) 06/22/17 04:56 Potassium 3.4 mmol/L (3.6-5.0) L 06/22/17 04:56 Chloride 100.5 mmol/L (98-107) 06/22/17 04:56 Carbon Dioxide 30 mmol/L (22-30) 06/22/17 04:56 Anion Gap 18 mmol/L 06/22/17 04:56 BUN 29 mg/dL (7-17) H 06/22/17 04:56 Creatinine 0.8 mg/dL (0.7-1.2) 06/22/17 04:56 Estimated GFR > 60 ml/min 06/22/17 04:56 BUN/Creatinine Ratio 36 % 06/22/17 04:56 Glucose 144 mg/dL (65-100) H 06/22/17 04:56 POC Glucose 196 (70-105) H 06/19/17 16:15 Lactic Acid 1.80 mmol/L (0.7-2.0) 06/17/17 00:02 Calcium 8.6 mg/dL (8.4-10.2) 06/22/17 04:56 Phosphorus 3.70 mg/dL (2.5-4.5) 06/18/17 04:47 Magnesium 2.40 mg/dL (1.7-2.3) H 06/18/17 04:47 Total Bilirubin 0.30 mg/dL (0.1-1.2) 06/20/17 05:20 Direct Bilirubin 0.2 mg/dL (0-0.2) 06/16/17 14:28 Indirect Bilirubin 0.4 mg/dL 06/16/17 14:28 AST 51 units/L (5-40) H 06/20/17 05:20 ALT 70 units/L (7-56) H 06/20/17 05:20 Alkaline Phosphatase 54 units/L (35-129) 06/20/17 05:20 Troponin T < 0.010 ng/mL (0.00-0.029) 06/16/17 13:43 NT-Pro-B Natriuret Pep 3968 pg/mL (0-900) H 06/16/17 13:43 Total Protein 6.2 g/dL (6.3-8.2) L 06/20/17 05:20 Albumin 3.4 g/dL (3.9-5) L 06/20/17 05:20 Albumin/Globulin Ratio 1.2 % 06/20/17 05:20 Urine Color Yellow (Yellow) 06/16/17 Unknown Urine Turbidity Clear (Clear) 06/16/17 Unknown Urine pH 5.0 (5.0-7.0) 06/16/17 Unknown Ur Specific [place] 1.013 (1.003-1.030) 06/16/17 Unknown Urine Protein 30 mg/dl mg/dL (Negative) 06/16/17 Unknown Urine Glucose (UA) Neg mg/dL (Negative) 06/16/17 Unknown Urine Ketones Neg mg/dL (Negative) 06/16/17 Unknown Urine Blood Neg (Negative) 06/16/17 Unknown Urine Nitrite Neg (Negative) 06/16/17 Unknown Urine Bilirubin Neg (Negative) 06/16/17 Unknown Urine Urobilinogen < 2.0 mg/dL (<2.0) 06/16/17 Unknown Ur Leukocyte Esterase Neg (Negative) 06/16/17 Unknown Urine WBC (Auto) 1.0 /HPF (0.0-6.0) 06/16/17 Unknown Urine RBC (Auto) 1.0 /HPF (0.0-6.0) 06/16/17 Unknown U Epithel Cells (Auto) < 1.0 /HPF (0-13.0) 06/16/17 Unknown Urine Bacteria (Auto) 2+ /HPF (Negative) 06/16/17 Unknown Urine Mucus Few /HPF 06/16/17 Unknown Blood Type A POSITIVE 06/16/17 14:28 Antibody Screen Negative 06/16/17 14:28
--- NOTE | 2017-06-22 14:55 | Progress Note ---
Assessment and Plan Imp: 1. HCAP (admitted to [facility] 04/2017) 2. Atelectasis L, ? mucous plugging, pneumonia, tracheobronchomalacia, poor effort, etc.; this is a new finding -> nothing on CT chest 04/2017 to suggest endobronchial lesion/malignancy 3. Acute respiratory failure, hypoxia 4. COPD exac. 5. AFib w/ RVR Rec: 1. Broaden ABX to Vanco/Zosyn/Azithro; see #1 2. Solumedrol 3. Duonebs, pulmicort/brovana 4. Incentive bea 5. Chest PT 6. F/u serial CXR; bronch is a last resort Plan of care reviewed with patient, she understands/agrees Subjective Date of service: 06/22/17 Principal diagnosis: sepsis, Acute respiratory failure Interval history: No events. On 5L NC. Poor historian. No complaints. Active Medications Acetaminophen (Tylenol) 650 mg PO Q4H PRN PRN Reason: Pain MILD(1-3)/Fever >100.5/CALDERÓN Last Admin: 06/21/17 21:52 Dose: 650 mg Albuterol (Proventil) 2.5 mg IH Q3HRT PRN PRN Reason: Wheezing Albuterol/Ipratropium (Duoneb *Not For Prn Use*) 1 ampul IH TIDRT [facility] Last Admin: 06/22/17 13:47 Dose: 1 ampul Apixaban (Eliquis) 2.5 mg PO Q12HR LILIBETH PRN Reason: Protocol Last Admin: 06/22/17 09:01 Dose: 2.5 mg Arformoterol Tartrate (Brovana Nebu) 15 mcg IH Q12HRT LILIBETH Azithromycin (Zithromax) 500 mg PO Q24H [facility] Last Admin: 06/22/17 09:01 Dose: 500 mg Bisacodyl (Dulcolax) 10 mg [place] QDAY PRN PRN Reason: Constipation unrelieved by MOM Budesonide (Pulmicort) 0.5 mg IH Q12HRT [facility] Piperacillin Sod/Tazobactam Sod (Zosyn/Ns 4.5gm/100ml) 4.5 gm in 100 mls @ 200 mls/hr IV Q8HR LILIBETH PRN Reason: Protocol Lorazepam (Ativan) 0.5 mg IV Q4H PRN PRN Reason: Anxiety Magnesium Hydroxide (Milk Of Magnesia) 30 ml PO Q4H PRN PRN Reason: Constipation Methylprednisolone Sodium Succinate (Solu-Medrol) 60 mg IV Q8H [facility] Last Admin: 06/22/17 08:58 Dose: 60 mg Metoprolol Tartrate (Lopressor) 50 mg PO Q12HR [facility] Last Admin: 06/22/17 12:38 Dose: 50 mg Ondansetron HCl (Zofran) 4 mg IV Q8H PRN PRN Reason: N/V unrelieved by Key Vancomycin HCl (Vancomycin Pharmacy To Dose) 1 each IV PKCONSULT [facility] PRN Reason: Protocol Objective Vital Signs - 12hr 06/22/17 06/22/17 06/22/17 05:05 07:58 08:00 Temperature 97.4 F L 98.1 F Pulse Rate 77 78 Pulse Rate [ 80 Anterior Bilateral Throughout] Respiratory 16 20 Rate Respiratory 18 Rate [Anterior Bilateral Throughout] Blood Pressure 136/77 Blood Pressure 143/76 [Right] O2 Sat by Pulse 94 93 Oximetry 06/22/17 06/22/17 06/22/17 08:10 10:00 11:28 Temperature 98.0 F Pulse Rate 75 85 Pulse Rate [ 82 Anterior Bilateral Throughout] Respiratory 20 Rate Respiratory 18 Rate [Anterior Bilateral Throughout] Blood Pressure 119/59 Blood Pressure [Right] O2 Sat by Pulse 93 97 Oximetry 06/22/17 12:38 Temperature Pulse Rate 85 Pulse Rate [ Anterior Bilateral Throughout] Respiratory Rate Respiratory Rate [Anterior Bilateral Throughout] Blood Pressure 119/59 Blood Pressure [Right] O2 Sat by Pulse Oximetry Constitutional: no acute distress Eyes: non-icteric ENT: oropharynx moist Neck: supple Effort: normal Ascultation: Right: clear, Left: diminished breath sounds Cardiovascular: irregular rhythm (no mrg) Gastrointestinal: normoactive bowel sounds, soft, non-tender Extremities: no cyanosis, no edema, pink and warm Neurologic: normal mental status, non-focal exam, pupils equal and round, CN II- XII normal Psychiatric: mood appropriate, affect normal CBC and BMP: 06/22/17 04:56 06/22/17 04:56 ABG, PT/INR, D-dimer: ABG POC ABG pH 7.379 (7.35-7.45) 06/16/17 15:31 POC ABG pCO2 37.3 (35-45) 06/16/17 15:31 POC ABG pO2 57 (80-105) L 06/16/17 15:31 POC ABG HCO3 22.0 06/16/17 15:31 POC ABG Total CO2 23 06/16/17 15:31 POC ABG O2 Sat 89 06/16/17 15:31 PT/INR, D-dimer PT 16.9 Sec. (12.2-14.9) H 06/16/17 13:43 INR 1.30 (0.87-1.13) H 06/16/17 13:43 D-Dimer 328.38 ng/mlDDU (0-234) H 06/16/17 13:43 Abnormal lab findings: Abnormal Labs 06/16/17 06/16/17 06/16/17 13:43 13:43 13:43 WBC 14.4 H RBC 5.51 H Hct 44.1 H MCV MCH 24 L RDW 19.7 H Lymph % (Auto) 7.6 L [place] % (Auto) Lymph # 1.1 L [place] # 1.0 H Seg Neutrophils % 84.2 H Seg Neuts % (Manual) Lymphocytes % (Manual) Seg Neutrophils # 12.2 H Seg Neutrophils # Man Lymphocytes # (Manual) PT 16.9 H INR 1.30 H D-Dimer POC ABG pO2 Sodium Potassium Carbon Dioxide 20 L BUN 34 H Creatinine 1.3 H Glucose 107 H POC Glucose Lactic Acid Magnesium AST ALT NT-Pro-B Natriuret Pep 3968 H Total Protein Albumin 06/16/17 06/16/17 06/16/17 13:43 14:28 14:28 WBC RBC Hct MCV MCH RDW Lymph % (Auto) [place] % (Auto) Lymph # [place] # Seg Neutrophils % Seg Neuts % (Manual) Lymphocytes % (Manual) Seg Neutrophils # Seg Neutrophils # Man Lymphocytes # (Manual) PT INR D-Dimer 328.38 H POC ABG pO2 Sodium Potassium Carbon Dioxide BUN Creatinine Glucose POC Glucose Lactic Acid 2.10 H* Magnesium 3.40 H AST ALT NT-Pro-B Natriuret Pep Total Protein Albumin 06/16/17 06/16/17 06/16/17 15:31 18:59 18:59 WBC RBC Hct MCV MCH RDW Lymph % (Auto) [place] % (Auto) Lymph # [place] # Seg Neutrophils % Seg Neuts % (Manual) Lymphocytes % (Manual) Seg Neutrophils # Seg Neutrophils # Man Lymphocytes # (Manual) PT INR D-Dimer POC ABG pO2 57 L Sodium Potassium Carbon Dioxide 21 L BUN 37 H Creatinine 1.4 H Glucose 141 H POC Glucose Lactic Acid 2.10 H* Magnesium AST ALT NT-Pro-B Natriuret Pep Total Protein Albumin 06/18/17 06/18/17 06/19/17 04:47 04:47 04:45 WBC 12.3 H RBC Hct MCV MCH 26 L 26 L RDW 18.8 H 18.7 H Lymph % (Auto) [place] % (Auto) Lymph # [place] # Seg Neutrophils % Seg Neuts % (Manual) 93.0 H 96.0 H Lymphocytes % (Manual) 3.0 L 1.0 L Seg Neutrophils # Seg Neutrophils # Man 11.4 H 10.4 H Lymphocytes # (Manual) 0.4 L 0.1 L PT INR D-Dimer POC ABG pO2 Sodium Potassium Carbon Dioxide BUN 30 H Creatinine Glucose 117 H POC Glucose Lactic Acid Magnesium 2.40 H AST ALT NT-Pro-B Natriuret Pep Total Protein Albumin 3.5 L 06/19/17 06/19/17 06/19/17 04:45 11:57 16:15 WBC RBC Hct MCV MCH RDW Lymph % (Auto) [place] % (Auto) Lymph # [place] # Seg Neutrophils % Seg Neuts % (Manual) Lymphocytes % (Manual) Seg Neutrophils # Seg Neutrophils # Man Lymphocytes # (Manual) PT INR D-Dimer POC ABG pO2 Sodium Potassium Carbon Dioxide BUN 39 H Creatinine Glucose 115 H POC Glucose 268 H 196 H Lactic Acid Magnesium AST ALT NT-Pro-B Natriuret Pep Total Protein Albumin 06/20/17 06/20/17 06/21/17 05:20 05:20 05:01 WBC 11.6 H RBC Hct MCV MCH 25 L 25 L RDW 19.0 H 18.9 H Lymph % (Auto) 3.2 L [place] % (Auto) 8.5 H Lymph # 0.4 L [place] # 1.0 H Seg Neutrophils % 88.3 H Seg Neuts % (Manual) 96.0 H Lymphocytes % (Manual) 1.0 L Seg Neutrophils # 10.3 H Seg Neutrophils # Man 8.4 H Lymphocytes # (Manual) 0.1 L PT INR D-Dimer POC ABG pO2 Sodium 146 H Potassium 3.4 L Carbon Dioxide BUN 33 H Creatinine Glucose 132 H POC Glucose Lactic Acid Magnesium AST 51 H ALT 70 H NT-Pro-B Natriuret Pep Total Protein 6.2 L Albumin 3.4 L 06/21/17 06/22/17 06/22/17 05:01 04:56 04:56 WBC RBC 5.26 H Hct MCV 78 L MCH 25 L RDW 19.1 H Lymph % (Auto) [place] % (Auto) Lymph # [place] # Seg Neutrophils % Seg Neuts % (Manual) 89.0 H Lymphocytes % (Manual) 2.0 L Seg Neutrophils # Seg Neutrophils # Man 9.2 H Lymphocytes # (Manual) 0.2 L PT INR D-Dimer POC ABG pO2 Sodium 146 H Potassium 3.4 L 3.4 L Carbon Dioxide BUN 30 H 29 H Creatinine Glucose 110 H 144 H POC Glucose Lactic Acid Magnesium AST ALT NT-Pro-B Natriuret Pep Total Protein Albumin Chest x-ray: report reviewed, image reviewed CT scan - chest: report reviewed, image reviewed
[2017-06-22] MEDS ORDERED: ZOSYN/NS 4.5GM/100ML 4.5 GM/100 ML VIAL IV SCH (15:00)
[2017-06-22] MEDS ORDERED: VANCOMYCIN PHARMACY TO DOSE IV SCH (15:00)
[2017-06-22] MEDS ORDERED: VANCOMYCIN/NS 1 GM/250 ML 1 GM/250 ML BAG IV ONE (16:00)
[2017-06-22] MEDS: ZOSYN/NS 3.375GM/50ML 3.375 GM/50 ML BAG IV SCH ×2 (17:45→21:06)
[2017-06-22] MEDS: PULMICORT IH SCH (20:28)
[2017-06-22] MEDS: BROVANA NEBU IH SCH (20:28)
[2017-06-23] MEDS: ZOSYN/NS 3.375GM/50ML 3.375 GM/50 ML BAG IV SCH ×4 (05:06→23:17)
[2017-06-23] MEDS: DUONEB *Not for PRN Use IH SCH ×3 (08:17→20:45)
[2017-06-23] MEDS: PULMICORT IH SCH ×2 (08:17→20:46)
[2017-06-23] MEDS: BROVANA NEBU IH SCH ×2 (08:17→20:47)
[2017-06-23] MEDS: ELIQUIS PO SCH ×2 (09:23→22:45)
[2017-06-23] MEDS: LOPRESSOR PO SCH ×2 (09:23→22:45)
[2017-06-23] MEDS: ZITHROMAX PO SCH (09:26)
--- NOTE | 2017-06-23 10:31 | Progress Note ---
Assessment and Plan Assessment and plan: Sepsis Elevated lactic acid level and Leukocytosis--resolved Cont. Sepsis protocol: IV abx, IVF, monitor uop q shift, Blood culture, - no growth so far blood cultures, NIPPV as clinically indicated- -patient, however, refuses Healthcare associated pneumonia. Continue IV antibiotics. Acute Hypoxemic respiratory failure Supplemental oxygen, nebs, aspiration precautions, monitor uop q shift, incentive spirometry Right middle lobe atelectasis. Consider bronchoscopy per pulmonary Acute COPD exacerbation. Solu-Medrol 60 mg IV every 8 hours. Nebulizer treatment. Supplemental oxygen. Pulmonary consultation. Atrial fibrillation with rapid ventricular response Lopressor 50 mg twice a day, continue telemetry monitoring, CTA chest showed no PE, Anticoagulated with eliquis. Cardiology following Ascending Aorta Aneurysm - 4.[address] of 04/30/17 Stable. Followed by at [facility] DVT prophylaxis Disposition LTAC evaluation History Interval history: no new issues overnight Hospitalist Physical - Constitutional Vitals: Temp Pulse Resp BP Pulse Ox 98.6 F 77 20 106/45 95 06/23/17 07:52 06/23/17 09:23 06/23/17 08:38 06/23/17 07:52 06/23/17 08:13 General appearance: Present: no acute distress, well-nourished - EENT Eyes: Present: PERRL, EOM intact ENT: hearing intact, clear oral mucosa, dentition normal - Neck Neck: Present: supple, normal ROM - Respiratory Respiratory effort: normal Respiratory: bilateral: CTA - Cardiovascular Rhythm: regular Heart Sounds: Present: S1 & S2. Absent: gallop, rub - Extremities Extremities: no ischemia, No edema, Full ROM - Abdominal General gastrointestinal: soft, non-tender, non-distended, normal bowel sounds - Integumentary Integumentary: Present: clear, warm, dry - Neurologic Neurologic: CNII-XII intact, moves all extremities Results - Labs CBC & Chem 7: 06/22/17 04:56 06/22/17 04:56 Labs: Laboratory Last Values WBC 10.3 K/mm3 (4.5-11.0) 06/22/17 04:56 RBC 5.26 M/mm3 (3.65-5.03) H 06/22/17 04:56 Hgb 12.9 gm/dl (10.1-14.3) 06/22/17 04:56 Hct 41.1 % (30.3-42.9) 06/22/17 04:56 MCV 78 fl (79-97) L 06/22/17 04:56 MCH 25 pg (28-32) L 06/22/17 04:56 MCHC 31 % (30-34) 06/22/17 04:56 RDW 19.1 % (13.2-15.2) H 06/22/17 04:56 Plt Count 193 K/mm3 (140-440) 06/22/17 04:56 Lymph % (Auto) 3.2 % (13.4-35.0) L 06/21/17 05:01 [place] % (Auto) 8.5 % (0.0-7.3) H 06/21/17 05:01 Eos % (Auto) 0.0 % (0.0-4.3) 06/21/17 05:01 Baso % (Auto) 0.0 % (0.0-1.8) 06/21/17 05:01 Lymph # 0.4 K/mm3 (1.2-5.4) L 06/21/17 05:01 [place] # 1.0 K/mm3 (0.0-0.8) H 06/21/17 05:01 Eos # 0.0 K/mm3 (0.0-0.4) 06/21/17 05:01 Baso # 0.0 K/mm3 (0.0-0.1) 06/21/17 05:01 Add Manual Diff Complete 06/22/17 04:56 Total Counted 100 06/22/17 04:56 Seg Neutrophils % Packaging Materials Inspector 06/22/17 04:56 Seg Neuts % (Manual) 89.0 % (40.0-70.0) H 06/22/17 04:56 Band Neutrophils % 5.0 % 06/22/17 04:56 Lymphocytes % (Manual) 2.0 % (13.4-35.0) L 06/22/17 04:56 Reactive Lymphs % (Man) 0 % 06/22/17 04:56 Monocytes % (Manual) 4.0 % (0.0-7.3) 06/22/17 04:56 Eosinophils % (Manual) 0 % (0.0-4.3) 06/22/17 04:56 Basophils % (Manual) 0 % (0.0-1.8) 06/22/17 04:56 Metamyelocytes % 0 % 06/22/17 04:56 Myelocytes % 0 % 06/22/17 04:56 Promyelocytes % 0 % 06/22/17 04:56 Blast Cells % 0 % 06/22/17 04:56 Nucleated RBC % Not Reportable 06/22/17 04:56 Seg Neutrophils # 10.3 K/mm3 (1.8-7.7) H 06/21/17 05:01 Seg Neutrophils # Man 9.2 K/mm3 (1.8-7.7) H 06/22/17 04:56 Band Neutrophils # 0.5 K/mm3 06/22/17 04:56 Lymphocytes # (Manual) 0.2 K/mm3 (1.2-5.4) L 06/22/17 04:56 Abs React Lymphs (Man) 0.0 K/mm3 06/22/17 04:56 Monocytes # (Manual) 0.4 K/mm3 (0.0-0.8) 06/22/17 04:56 Eosinophils # (Manual) 0.0 K/mm3 (0.0-0.4) 06/22/17 04:56 Basophils # (Manual) 0.0 K/mm3 (0.0-0.1) 06/22/17 04:56 Metamyelocytes # 0.0 K/mm3 06/22/17 04:56 Myelocytes # 0.0 K/mm3 06/22/17 04:56 Promyelocytes # 0.0 K/mm3 06/22/17 04:56 Blast Cells # 0.0 K/mm3 06/22/17 04:56 WBC Morphology Not Reportable 06/22/17 04:56 Hypersegmented Neuts Not Reportable 06/22/17 04:56 Hyposegmented Neuts Not Reportable 06/22/17 04:56 Hypogranular Neuts Not Reportable 06/22/17 04:56 Smudge Cells Not Reportable 06/22/17 04:56 Toxic Granulation Not Reportable 06/22/17 04:56 Toxic Vacuolation Not Reportable 06/22/17 04:56 Dohle Bodies Not Reportable 06/22/17 04:56 Pelger-Huet Anomaly Not Reportable 06/22/17 04:56 Antonio Rods Not Reportable 06/22/17 04:56 Platelet Estimate Consistent w auto 06/22/17 04:56 Clumped Platelets Not Reportable 06/22/17 04:56 Plt Clumps, EDTA Not Reportable 06/22/17 04:56 Large Platelets Not Reportable 06/22/17 04:56 Giant Platelets Not Reportable 06/22/17 04:56 Platelet Satelliting Not Reportable 06/22/17 04:56 Plt Morphology Comment Not Reportable 06/22/17 04:56 RBC Morphology Not Reportable 06/22/17 04:56 Dimorphic RBCs Not Reportable 06/22/17 04:56 Polychromasia Not Reportable 06/22/17 04:56 Hypochromasia 1+ 06/22/17 04:56 Poikilocytosis Not Reportable 06/22/17 04:56 Anisocytosis Not Reportable 06/22/17 04:56 Microcytosis Not Reportable 06/22/17 04:56 Macrocytosis Not Reportable 06/22/17 04:56 Spherocytes Not Reportable 06/22/17 04:56 Pappenheimer Bodies Not Reportable 06/22/17 04:56 Sickle Cells Not Reportable 06/22/17 04:56 Target Cells Not Reportable 06/22/17 04:56 Tear Drop Cells Not Reportable 06/22/17 04:56 Ovalocytes Not Reportable 06/22/17 04:56 Helmet Cells Not Reportable 06/22/17 04:56 [place] Bodies Not Reportable 06/22/17 04:56 [place] Rings Not Reportable 06/22/17 04:56 Rain Cells Not Reportable 06/22/17 04:56 Bite Cells Not Reportable 06/22/17 04:56 Crenated Cell Not Reportable 06/22/17 04:56 Elliptocytes Not Reportable 06/22/17 04:56 Acanthocytes (Spur) Not Reportable 06/22/17 04:56 Rouleaux Not Reportable 06/22/17 04:56 Hemoglobin C Crystals Not Reportable 06/22/17 04:56 Schistocytes Not Reportable 06/22/17 04:56 Malaria parasites Not Reportable 06/22/17 04:56 Konrad Bodies Not Reportable 06/22/17 04:56 Hem Pathologist Commnt No 06/22/17 04:56 PT 16.9 Sec. (12.2-14.9) H 06/16/17 13:43 INR 1.30 (0.87-1.13) H 06/16/17 13:43 APTT 32.9 Sec. (24.2-36.6) 06/16/17 13:43 D-Dimer 328.38 ng/mlDDU (0-234) H 06/16/17 13:43 POC ABG pH 7.379 (7.35-7.45) 06/16/17 15:31 POC ABG pCO2 37.3 (35-45) 06/16/17 15:31 POC ABG pO2 57 (80-105) L 06/16/17 15:31 POC ABG HCO3 22.0 06/16/17 15:31 POC ABG Total CO2 23 06/16/17 15:31 POC ABG O2 Sat 89 06/16/17 15:31 POC ABG Base Excess -3 06/16/17 15:31 FiO2 45 % 06/16/17 15:31 Sodium 145 mmol/L (137-145) 06/22/17 04:56 Potassium 3.4 mmol/L (3.6-5.0) L 06/22/17 04:56 Chloride 100.5 mmol/L (98-107) 06/22/17 04:56 Carbon Dioxide 30 mmol/L (22-30) 06/22/17 04:56 Anion Gap 18 mmol/L 06/22/17 04:56 BUN 29 mg/dL (7-17) H 06/22/17 04:56 Creatinine 0.8 mg/dL (0.7-1.2) 06/22/17 04:56 Estimated GFR > 60 ml/min 06/22/17 04:56 BUN/Creatinine Ratio 36 % 06/22/17 04:56 Glucose 144 mg/dL (65-100) H 06/22/17 04:56 POC Glucose 196 (70-105) H 06/19/17 16:15 Lactic Acid 1.80 mmol/L (0.7-2.0) 06/17/17 00:02 Calcium 8.6 mg/dL (8.4-10.2) 06/22/17 04:56 Phosphorus 3.70 mg/dL (2.5-4.5) 06/18/17 04:47 Magnesium 2.40 mg/dL (1.7-2.3) H 06/18/17 04:47 Total Bilirubin 0.30 mg/dL (0.1-1.2) 06/20/17 05:20 Direct Bilirubin 0.2 mg/dL (0-0.2) 06/16/17 14:28 Indirect Bilirubin 0.4 mg/dL 06/16/17 14:28 AST 51 units/L (5-40) H 06/20/17 05:20 ALT 70 units/L (7-56) H 06/20/17 05:20 Alkaline Phosphatase 54 units/L (35-129) 06/20/17 05:20 Troponin T < 0.010 ng/mL (0.00-0.029) 06/16/17 13:43 NT-Pro-B Natriuret Pep 3968 pg/mL (0-900) H 06/16/17 13:43 Total Protein 6.2 g/dL (6.3-8.2) L 06/20/17 05:20 Albumin 3.4 g/dL (3.9-5) L 06/20/17 05:20 Albumin/Globulin Ratio 1.2 % 06/20/17 05:20 Urine Color Yellow (Yellow) 06/16/17 Unknown Urine Turbidity Clear (Clear) 06/16/17 Unknown Urine pH 5.0 (5.0-7.0) 06/16/17 Unknown Ur Specific [place] 1.013 (1.003-1.030) 06/16/17 Unknown Urine Protein 30 mg/dl mg/dL (Negative) 06/16/17 Unknown Urine Glucose (UA) Neg mg/dL (Negative) 06/16/17 Unknown Urine Ketones Neg mg/dL (Negative) 06/16/17 Unknown Urine Blood Neg (Negative) 06/16/17 Unknown Urine Nitrite Neg (Negative) 06/16/17 Unknown Urine Bilirubin Neg (Negative) 06/16/17 Unknown Urine Urobilinogen < 2.0 mg/dL (<2.0) 06/16/17 Unknown Ur Leukocyte Esterase Neg (Negative) 06/16/17 Unknown Urine WBC (Auto) 1.0 /HPF (0.0-6.0) 06/16/17 Unknown Urine RBC (Auto) 1.0 /HPF (0.0-6.0) 06/16/17 Unknown U Epithel Cells (Auto) < 1.0 /HPF (0-13.0) 06/16/17 Unknown Urine Bacteria (Auto) 2+ /HPF (Negative) 06/16/17 Unknown Urine Mucus Few /HPF 06/16/17 Unknown Blood Type A POSITIVE 06/16/17 14:28 Antibody Screen Negative 06/16/17 14:28
--- NOTE | 2017-06-23 11:41 | Progress Note ---
Assessment and Plan Assessment: Paroxysmal atrial fibrillation with RVR --> CVR; on eliquis Acute hypoxic respiratory failure - improving PNA COPD exacerbation ? Sepsis / lactic acidosis HTN CKD Hypokalemia Ascending aortic aneurysm 4.[address] done 04/30/2017 Plan: Currently stable cardiac status. Cont present cardiac management. Replete K+ and repeat BMP in AM. Consider LTAC for patient's respiratory status. The patient has been seen in conjunction with Dr. Mckeon who agrees with the assessment and plan of care. Subjective Date of service: 06/23/17 Principal diagnosis: sepsis, Acute respiratory failure Interval history: pt resting comfortably in bed, states SOB slightly better, in AFib with CVR on tele. Objective Last Vital Signs Temp 98.6 F 06/23/17 07:52 Pulse 77 06/23/17 09:23 Resp 20 06/23/17 08:38 BP 106/45 06/23/17 07:52 Pulse Ox 95 06/23/17 08:13 - Physical Examination General: No Apparent Distress, Other (appears chronically ill ) HEENT: Positive: PERRL, Normocephaly, Mucus Membranes Moist Neck: Positive: neck supple, trachea midline Cardiac: Positive: irregularly irregular, S1/S2 Lungs: Positive: Decreased Breath Sounds Neuro: Positive: Grossly Intact Abdomen: Positive: Soft. Negative: Tender Skin: Positive: Clear. Negative: Rash, Wound Musculoskeletal: No Fluid Collection, No Pain, Normal Range of Motion Extremities: Absent: edema - Imaging and Cardiology EKG: report reviewed, image reviewed Echo: report reviewed ( 01/2017 showed EF 60%, LA and RA severely dilated, mild AR, mild to mod MR)
[2017-06-23] MEDS ORDERED: K-DUR PO ONE (11:44)
--- NOTE | 2017-06-23 14:00 | Progress Note ---
Assessment and Plan Imp: 1. HCAP (admitted to [facility] 04/2017) 2. Atelectasis L, ? mucous plugging, pneumonia, tracheobronchomalacia, poor effort, etc.; this is a new finding -> nothing on [facility] CT chest 04/2017 to suggest endobronchial lesion/malignancy 3. Acute respiratory failure, hypoxia 4. COPD exac. 5. AFib w/ RVR Rec: 1. Broaden ABX to Vanco/Zosyn; stop Azithro as has received 7 days 2. Solumedrol -> decrease 3. Duonebs, pulmicort/brovana 4. Incentive bea 10x/hour 5. Chest PT 6. OOB to chair 7. CXR in AM Plan of care reviewed with patient, she understands/agrees Subjective Date of service: 06/23/17 Principal diagnosis: sepsis, Acute respiratory failure Interval history: No events. On 5L NC. Poor historian. No complaints. Active Medications Acetaminophen (Tylenol) 650 mg PO Q4H PRN PRN Reason: Pain MILD(1-3)/Fever >100.5/CALDERÓN Last Admin: 06/21/17 21:52 Dose: 650 mg Albuterol (Proventil) 2.5 mg IH Q3HRT PRN PRN Reason: Wheezing Albuterol/Ipratropium (Duoneb *Not For Prn Use*) 1 ampul IH TIDRT [facility] Last Admin: 06/23/17 08:17 Dose: Not Given Apixaban (Eliquis) 2.5 mg PO Q12HR [facility] PRN Reason: Protocol Last Admin: 06/23/17 09:23 Dose: 2.5 mg Arformoterol Tartrate (Brovana Nebu) 15 mcg IH Q12HRT [facility] Last Admin: 06/23/17 08:17 Dose: 15 mcg Bisacodyl (Dulcolax) 10 mg MN QDAY PRN PRN Reason: Constipation unrelieved by MOM Budesonide (Pulmicort) 0.5 mg IH Q12HRT [facility] Last Admin: 06/23/17 08:17 Dose: 0.5 mg Piperacillin Sod/Tazobactam Sod (Zosyn/Ns 3.375gm/50ml) 3.375 gm in 50 mls @ 100 mls/hr IV Q6H [facility] Last Admin: 06/23/17 11:05 Dose: 100 mls/hr Vancomycin HCl 750 mg/ Sodium (Chloride) 257.5 mls @ 166.667 mls/hr IV Q24H [facility] Lorazepam (Ativan) 0.5 mg IV Q4H PRN PRN Reason: Anxiety Magnesium Hydroxide (Milk Of Magnesia) 30 ml PO Q4H PRN PRN Reason: Constipation Methylprednisolone Sodium Succinate (Solu-Medrol) 20 mg IV Q8H [facility] Metoprolol Tartrate (Lopressor) 50 mg PO Q12HR [facility] Last Admin: 06/23/17 09:23 Dose: 50 mg Ondansetron HCl (Zofran) 4 mg IV Q8H PRN PRN Reason: N/V unrelieved by Key Vancomycin HCl (Vancomycin Pharmacy To Dose) 1 each IV PKCONSULT LILIBETH PRN Reason: Protocol Objective Vital Signs - 12hr 06/23/17 06/23/17 06/23/17 04:19 07:52 08:13 Temperature 98.6 F 98.6 F Pulse Rate 69 63 Pulse Rate [ Anterior Bilateral Throughout] Pulse Rate [ 69 Anterior Right Throughout] Respiratory 18 16 Rate Respiratory Rate [Anterior Bilateral Throughout] Respiratory 18 Rate [Anterior Right Throughout] Blood Pressure 131/83 Blood Pressure 106/45 [Right] O2 Sat by Pulse 96 93 95 Oximetry 06/23/17 06/23/17 06/23/17 08:38 09:23 11:06 Temperature 98.1 F Pulse Rate 77 70 Pulse Rate [ 77 Anterior Bilateral Throughout] Pulse Rate [ Anterior Right Throughout] Respiratory 16 Rate Respiratory 20 Rate [Anterior Bilateral Throughout] Respiratory Rate [Anterior Right Throughout] Blood Pressure 110/61 Blood Pressure [Right] O2 Sat by Pulse 97 Oximetry Constitutional: no acute distress, alert Eyes: non-icteric ENT: oropharynx moist Neck: supple Effort: normal Ascultation: Right: clear, Left: diminished breath sounds (base) Cardiovascular: irregular rhythm (no mrg) Gastrointestinal: normoactive bowel sounds, soft, non-tender Extremities: no cyanosis, no edema, pink and warm Neurologic: normal mental status, non-focal exam, pupils equal and round, CN II- XII normal Psychiatric: mood appropriate, affect normal CBC and BMP: 06/22/17 04:56 06/22/17 04:56 ABG, PT/INR, D-dimer: ABG POC ABG pH 7.379 (7.35-7.45) 06/16/17 15:31 POC ABG pCO2 37.3 (35-45) 06/16/17 15:31 POC ABG pO2 57 (80-105) L 06/16/17 15:31 POC ABG HCO3 22.0 06/16/17 15:31 POC ABG Total CO2 23 06/16/17 15:31 POC ABG O2 Sat 89 06/16/17 15:31 PT/INR, D-dimer PT 16.9 Sec. (12.2-14.9) H 06/16/17 13:43 INR 1.30 (0.87-1.13) H 06/16/17 13:43 D-Dimer 328.38 ng/mlDDU (0-234) H 06/16/17 13:43 Abnormal lab findings: Abnormal Labs 06/16/17 06/16/17 06/16/17 13:43 13:43 13:43 WBC 14.4 H RBC 5.51 H Hct 44.1 H MCV MCH 24 L RDW 19.7 H Lymph % (Auto) 7.6 L [place] % (Auto) Lymph # 1.1 L [place] # 1.0 H Seg Neutrophils % 84.2 H Seg Neuts % (Manual) Lymphocytes % (Manual) Seg Neutrophils # 12.2 H Seg Neutrophils # Man Lymphocytes # (Manual) PT 16.9 H INR 1.30 H D-Dimer POC ABG pO2 Sodium Potassium Carbon Dioxide 20 L BUN 34 H Creatinine 1.3 H Glucose 107 H POC Glucose Lactic Acid Magnesium AST ALT NT-Pro-B Natriuret Pep 3968 H Total Protein Albumin 06/16/17 06/16/17 06/16/17 13:43 14:28 14:28 WBC RBC Hct MCV MCH RDW Lymph % (Auto) [place] % (Auto) Lymph # [place] # Seg Neutrophils % Seg Neuts % (Manual) Lymphocytes % (Manual) Seg Neutrophils # Seg Neutrophils # Man Lymphocytes # (Manual) PT INR D-Dimer 328.38 H POC ABG pO2 Sodium Potassium Carbon Dioxide BUN Creatinine Glucose POC Glucose Lactic Acid 2.10 H* Magnesium 3.40 H AST ALT NT-Pro-B Natriuret Pep Total Protein Albumin 06/16/17 06/16/17 06/16/17 15:31 18:59 18:59 WBC RBC Hct MCV MCH RDW Lymph % (Auto) [place] % (Auto) Lymph # [place] # Seg Neutrophils % Seg Neuts % (Manual) Lymphocytes % (Manual) Seg Neutrophils # Seg Neutrophils # Man Lymphocytes # (Manual) PT INR D-Dimer POC ABG pO2 57 L Sodium Potassium Carbon Dioxide 21 L BUN 37 H Creatinine 1.4 H Glucose 141 H POC Glucose Lactic Acid 2.10 H* Magnesium AST ALT NT-Pro-B Natriuret Pep Total Protein Albumin 06/18/17 06/18/17 06/19/17 04:47 04:47 04:45 WBC 12.3 H RBC Hct MCV MCH 26 L 26 L RDW 18.8 H 18.7 H Lymph % (Auto) [place] % (Auto) Lymph # [place] # Seg Neutrophils % Seg Neuts % (Manual) 93.0 H 96.0 H Lymphocytes % (Manual) 3.0 L 1.0 L Seg Neutrophils # Seg Neutrophils # Man 11.4 H 10.4 H Lymphocytes # (Manual) 0.4 L 0.1 L PT INR D-Dimer POC ABG pO2 Sodium Potassium Carbon Dioxide BUN 30 H Creatinine Glucose 117 H POC Glucose Lactic Acid Magnesium 2.40 H AST ALT NT-Pro-B Natriuret Pep Total Protein Albumin 3.5 L 06/19/17 06/19/17 06/19/17 04:45 11:57 16:15 WBC RBC Hct MCV MCH RDW Lymph % (Auto) [place] % (Auto) Lymph # [place] # Seg Neutrophils % Seg Neuts % (Manual) Lymphocytes % (Manual) Seg Neutrophils # Seg Neutrophils # Man Lymphocytes # (Manual) PT INR D-Dimer POC ABG pO2 Sodium Potassium Carbon Dioxide BUN 39 H Creatinine Glucose 115 H POC Glucose 268 H 196 H Lactic Acid Magnesium AST ALT NT-Pro-B Natriuret Pep Total Protein Albumin 06/20/17 06/20/17 06/21/17 05:20 05:20 05:01 WBC 11.6 H RBC Hct MCV MCH 25 L 25 L RDW 19.0 H 18.9 H Lymph % (Auto) 3.2 L [place] % (Auto) 8.5 H Lymph # 0.4 L [place] # 1.0 H Seg Neutrophils % 88.3 H Seg Neuts % (Manual) 96.0 H Lymphocytes % (Manual) 1.0 L Seg Neutrophils # 10.3 H Seg Neutrophils # Man 8.4 H Lymphocytes # (Manual) 0.1 L PT INR D-Dimer POC ABG pO2 Sodium 146 H Potassium 3.4 L Carbon Dioxide BUN 33 H Creatinine Glucose 132 H POC Glucose Lactic Acid Magnesium AST 51 H ALT 70 H NT-Pro-B Natriuret Pep Total Protein 6.2 L Albumin 3.4 L 06/21/17 06/22/17 06/22/17 05:01 04:56 04:56 WBC RBC 5.26 H Hct MCV 78 L MCH 25 L RDW 19.1 H Lymph % (Auto) [place] % (Auto) Lymph # [place] # Seg Neutrophils % Seg Neuts % (Manual) 89.0 H Lymphocytes % (Manual) 2.0 L Seg Neutrophils # Seg Neutrophils # Man 9.2 H Lymphocytes # (Manual) 0.2 L PT INR D-Dimer POC ABG pO2 Sodium 146 H Potassium 3.4 L 3.4 L Carbon Dioxide BUN 30 H 29 H Creatinine Glucose 110 H 144 H POC Glucose Lactic Acid Magnesium AST ALT NT-Pro-B Natriuret Pep Total Protein Albumin Chest x-ray: report reviewed, image reviewed CT scan - chest: report reviewed, image reviewed
[2017-06-23] MEDS: VANCOMYCIN 750 MG in NACL 0.9% 250ML 250 ML IV SCH (16:20)
[2017-06-24] MEDS: ZOSYN/NS 3.375GM/50ML 3.375 GM/50 ML BAG IV SCH ×4 (04:50→22:59)
[2017-06-24 06:19] LABS: Calcium 8.2 mg/dL (8.4-10.2)
[2017-06-24] MEDS: BROVANA NEBU IH SCH ×3 (08:26→21:02)
[2017-06-24] MEDS: DUONEB *Not for PRN Use IH SCH ×4 (08:26→21:02)
[2017-06-24] MEDS: PULMICORT IH SCH ×3 (08:26→21:01)
--- NOTE | 2017-06-24 08:37 | XRay Report ---
AP CHEST: HISTORY: Followup pneumonia, atelectasis Compared to 06/21/17 at 1615 hrs. Complete opacification of the left hemithorax has developed since yesterday's exam. There is mediastinal shift to the left. These findings suggest complete left lung atelectasis. Superimposed infiltrate in the left lung cannot be excluded. The right lung is hyperinflated but clear. Cardiomegaly appears grossly stable. No pneumothorax is detected. IMPRESSION: Complete atelectasis of the left lung has developed.
[2017-06-24] MEDS: K-DUR PO SCH ×2 (10:18→15:42)
[2017-06-24] MEDS: LOPRESSOR PO SCH ×2 (10:18→21:51)
[2017-06-24] MEDS: ELIQUIS PO SCH ×2 (10:19→21:47)
--- NOTE | 2017-06-24 10:46 | Progress Note ---
Assessment and Plan Assessment: Paroxysmal atrial fibrillation with RVR --> CVR; on eliquis Acute hypoxic respiratory failure - improving PNA COPD exacerbation ? Sepsis / lactic acidosis HTN CKD Hypokalemia Ascending aortic aneurysm 4.[address] done 04/30/2017 Plan: Replete K+ and repeat BMP in AM. Currently stable cardiac status. Cont present cardiac management. Nothing further to add from cardiac perspective at this time. Will follow on as needed basis. 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 Gustabo Del Angel, within 1-2 weeks of hospital discharge. The patient has been seen in conjunction with Dr. Mckeon who agrees with the assessment and plan of care. Subjective Date of service: 06/24/17 Principal diagnosis: sepsis, Acute respiratory failure Interval history: pt resting comfortably in bed, states SOB improved, in AFib with CVR on tele. Objective Last Vital Signs Temp 98.3 F 06/24/17 05:12 Pulse 79 06/24/17 00:20 Resp 23 06/24/17 05:12 BP 121/77 06/24/17 05:12 Pulse Ox 96 06/24/17 00:20 - Physical Examination General: No Apparent Distress, Other (appears chronically ill ) HEENT: Positive: PERRL, Normocephaly, Mucus Membranes Moist Neck: Positive: neck supple, trachea midline Cardiac: Positive: irregularly irregular, S1/S2 Lungs: Positive: Decreased Breath Sounds Neuro: Positive: Grossly Intact Abdomen: Positive: Soft. Negative: Tender Skin: Positive: Clear. Negative: Rash, Wound Musculoskeletal: No Fluid Collection, No Pain, Normal Range of Motion Extremities: Absent: edema - Labs and Meds Comprehensive Metabolic Panel 06/24/17 Range/Units 04:48 Sodium 142 (137-145) mmol/L Potassium 3.3 L (3.6-5.0) mmol/L Chloride 102.0 (98-107) mmol/L Carbon Dioxide 28 (22-30) mmol/L BUN 38 H (7-17) mg/dL Creatinine 1.1 (0.7-1.2) mg/dL Glucose 133 H (65-100) mg/dL Calcium 8.2 L (8.4-10.2) mg/dL - Imaging and Cardiology EKG: report reviewed, image reviewed Echo: report reviewed ( 01/2017 showed EF 60%, LA and RA severely dilated, mild AR, mild to mod MR)
--- NOTE | 2017-06-24 12:30 | Progress Note ---
Assessment and Plan Assessment and plan: Sepsis Elevated lactic acid level and Leukocytosis--resolved Cont. Sepsis protocol: IV abx, IVF, monitor uop q shift, Blood culture, - no growth so far blood cultures, NIPPV as clinically indicated Healthcare associated pneumonia. Continue IV antibiotics. Acute Hypoxemic respiratory failure Supplemental oxygen, nebs, aspiration precautions, monitor uop q shift, incentive spirometry Right middle lobe atelectasis. Consider bronchoscopy per pulmonary Acute COPD exacerbation. Solu-Medrol 20 mg IV every 8 hours. Nebulizer treatment. Supplemental oxygen. Pulmonary following Atrial fibrillation with rapid ventricular response Lopressor 50 mg twice a day, continue telemetry monitoring, CTA chest showed no PE, Anticoagulated with eliquis. Cardiology following Ascending Aorta Aneurysm - 4.[address] of 04/30/17 Stable. Followed by at [facility] DVT prophylaxis Disposition LTAC evaluation History Interval history: no new issues overnight Hospitalist Physical - Constitutional Vitals: Temp Pulse Resp BP Pulse Ox 97.9 F 60 18 105/59 99 06/24/17 11:23 06/24/17 11:49 06/24/17 11:49 06/24/17 11:23 06/24/17 11:23 General appearance: Present: no acute distress, well-nourished - EENT Eyes: Present: PERRL, EOM intact ENT: hearing intact, clear oral mucosa, dentition normal - Neck Neck: Present: supple, normal ROM - Respiratory Respiratory effort: normal Respiratory: bilateral: CTA - Cardiovascular Rhythm: regular Heart Sounds: Present: S1 & S2. Absent: gallop, rub - Extremities Extremities: no ischemia, No edema, Full ROM - Abdominal General gastrointestinal: soft, non-tender, non-distended, normal bowel sounds - Integumentary Integumentary: Present: clear, warm, dry - Neurologic Neurologic: CNII-XII intact, moves all extremities Results - Labs CBC & Chem 7: 06/22/17 04:56 06/24/17 04:48 Labs: Laboratory Last Values WBC 10.3 K/mm3 (4.5-11.0) 06/22/17 04:56 RBC 5.26 M/mm3 (3.65-5.03) H 06/22/17 04:56 Hgb 12.9 gm/dl (10.1-14.3) 06/22/17 04:56 Hct 41.1 % (30.3-42.9) 06/22/17 04:56 MCV 78 fl (79-97) L 06/22/17 04:56 MCH 25 pg (28-32) L 06/22/17 04:56 MCHC 31 % (30-34) 06/22/17 04:56 RDW 19.1 % (13.2-15.2) H 06/22/17 04:56 Plt Count 193 K/mm3 (140-440) 06/22/17 04:56 Lymph % (Auto) 3.2 % (13.4-35.0) L 06/21/17 05:01 [place] % (Auto) 8.5 % (0.0-7.3) H 06/21/17 05:01 Eos % (Auto) 0.0 % (0.0-4.3) 06/21/17 05:01 Baso % (Auto) 0.0 % (0.0-1.8) 06/21/17 05:01 Lymph # 0.4 K/mm3 (1.2-5.4) L 06/21/17 05:01 [place] # 1.0 K/mm3 (0.0-0.8) H 06/21/17 05:01 Eos # 0.0 K/mm3 (0.0-0.4) 06/21/17 05:01 Baso # 0.0 K/mm3 (0.0-0.1) 06/21/17 05:01 Add Manual Diff Complete 06/22/17 04:56 Total Counted 100 06/22/17 04:56 Seg Neutrophils % Employment Training Specialist 06/22/17 04:56 Seg Neuts % (Manual) 89.0 % (40.0-70.0) H 06/22/17 04:56 Band Neutrophils % 5.0 % 06/22/17 04:56 Lymphocytes % (Manual) 2.0 % (13.4-35.0) L 06/22/17 04:56 Reactive Lymphs % (Man) 0 % 06/22/17 04:56 Monocytes % (Manual) 4.0 % (0.0-7.3) 06/22/17 04:56 Eosinophils % (Manual) 0 % (0.0-4.3) 06/22/17 04:56 Basophils % (Manual) 0 % (0.0-1.8) 06/22/17 04:56 Metamyelocytes % 0 % 06/22/17 04:56 Myelocytes % 0 % 06/22/17 04:56 Promyelocytes % 0 % 06/22/17 04:56 Blast Cells % 0 % 06/22/17 04:56 Nucleated RBC % Not Reportable 06/22/17 04:56 Seg Neutrophils # 10.3 K/mm3 (1.8-7.7) H 06/21/17 05:01 Seg Neutrophils # Man 9.2 K/mm3 (1.8-7.7) H 06/22/17 04:56 Band Neutrophils # 0.5 K/mm3 06/22/17 04:56 Lymphocytes # (Manual) 0.2 K/mm3 (1.2-5.4) L 06/22/17 04:56 Abs React Lymphs (Man) 0.0 K/mm3 06/22/17 04:56 Monocytes # (Manual) 0.4 K/mm3 (0.0-0.8) 06/22/17 04:56 Eosinophils # (Manual) 0.0 K/mm3 (0.0-0.4) 06/22/17 04:56 Basophils # (Manual) 0.0 K/mm3 (0.0-0.1) 06/22/17 04:56 Metamyelocytes # 0.0 K/mm3 06/22/17 04:56 Myelocytes # 0.0 K/mm3 06/22/17 04:56 Promyelocytes # 0.0 K/mm3 06/22/17 04:56 Blast Cells # 0.0 K/mm3 06/22/17 04:56 WBC Morphology Not Reportable 06/22/17 04:56 Hypersegmented Neuts Not Reportable 06/22/17 04:56 Hyposegmented Neuts Not Reportable 06/22/17 04:56 Hypogranular Neuts Not Reportable 06/22/17 04:56 Smudge Cells Not Reportable 06/22/17 04:56 Toxic Granulation Not Reportable 06/22/17 04:56 Toxic Vacuolation Not Reportable 06/22/17 04:56 Dohle Bodies Not Reportable 06/22/17 04:56 Pelger-Huet Anomaly Not Reportable 06/22/17 04:56 Antonio Rods Not Reportable 06/22/17 04:56 Platelet Estimate Consistent w auto 06/22/17 04:56 Clumped Platelets Not Reportable 06/22/17 04:56 Plt Clumps, EDTA Not Reportable 06/22/17 04:56 Large Platelets Not Reportable 06/22/17 04:56 Giant Platelets Not Reportable 06/22/17 04:56 Platelet Satelliting Not Reportable 06/22/17 04:56 Plt Morphology Comment Not Reportable 06/22/17 04:56 RBC Morphology Not Reportable 06/22/17 04:56 Dimorphic RBCs Not Reportable 06/22/17 04:56 Polychromasia Not Reportable 06/22/17 04:56 Hypochromasia 1+ 06/22/17 04:56 Poikilocytosis Not Reportable 06/22/17 04:56 Anisocytosis Not Reportable 06/22/17 04:56 Microcytosis Not Reportable 06/22/17 04:56 Macrocytosis Not Reportable 06/22/17 04:56 Spherocytes Not Reportable 06/22/17 04:56 Pappenheimer Bodies Not Reportable 06/22/17 04:56 Sickle Cells Not Reportable 06/22/17 04:56 Target Cells Not Reportable 06/22/17 04:56 Tear Drop Cells Not Reportable 06/22/17 04:56 Ovalocytes Not Reportable 06/22/17 04:56 Helmet Cells Not Reportable 06/22/17 04:56 Perez-Peosta Bodies Not Reportable 06/22/17 04:56 [place] Rings Not Reportable 06/22/17 04:56 Rain Cells Not Reportable 06/22/17 04:56 Bite Cells Not Reportable 06/22/17 04:56 Crenated Cell Not Reportable 06/22/17 04:56 Elliptocytes Not Reportable 06/22/17 04:56 Acanthocytes (Spur) Not Reportable 06/22/17 04:56 Rouleaux Not Reportable 06/22/17 04:56 Hemoglobin C Crystals Not Reportable 06/22/17 04:56 Schistocytes Not Reportable 06/22/17 04:56 Malaria parasites Not Reportable 06/22/17 04:56 Konrad Bodies Not Reportable 06/22/17 04:56 Hem Pathologist Commnt No 06/22/17 04:56 PT 16.9 Sec. (12.2-14.9) H 06/16/17 13:43 INR 1.30 (0.87-1.13) H 06/16/17 13:43 APTT 32.9 Sec. (24.2-36.6) 06/16/17 13:43 D-Dimer 328.38 ng/mlDDU (0-234) H 06/16/17 13:43 POC ABG pH 7.379 (7.35-7.45) 06/16/17 15:31 POC ABG pCO2 37.3 (35-45) 06/16/17 15:31 POC ABG pO2 57 (80-105) L 06/16/17 15:31 POC ABG HCO3 22.0 06/16/17 15:31 POC ABG Total CO2 23 06/16/17 15:31 POC ABG O2 Sat 89 06/16/17 15:31 POC ABG Base Excess -3 06/16/17 15:31 FiO2 45 % 06/16/17 15:31 Sodium 142 mmol/L (137-145) 06/24/17 04:48 Potassium 3.3 mmol/L (3.6-5.0) L 06/24/17 04:48 Chloride 102.0 mmol/L (98-107) 06/24/17 04:48 Carbon Dioxide 28 mmol/L (22-30) 06/24/17 04:48 Anion Gap 15 mmol/L 06/24/17 04:48 BUN 38 mg/dL (7-17) H 06/24/17 04:48 Creatinine 1.1 mg/dL (0.7-1.2) 06/24/17 04:48 Estimated GFR 48 ml/min 06/24/17 04:48 BUN/Creatinine Ratio 35 % 06/24/17 04:48 Glucose 133 mg/dL (65-100) H 06/24/17 04:48 POC Glucose 196 (70-105) H 06/19/17 16:15 Lactic Acid 1.80 mmol/L (0.7-2.0) 06/17/17 00:02 Calcium 8.2 mg/dL (8.4-10.2) L 06/24/17 04:48 Phosphorus 3.70 mg/dL (2.5-4.5) 06/18/17 04:47 Magnesium 2.40 mg/dL (1.7-2.3) H 06/18/17 04:47 Total Bilirubin 0.30 mg/dL (0.1-1.2) 06/20/17 05:20 Direct Bilirubin 0.2 mg/dL (0-0.2) 06/16/17 14:28 Indirect Bilirubin 0.4 mg/dL 06/16/17 14:28 AST 51 units/L (5-40) H 06/20/17 05:20 ALT 70 units/L (7-56) H 06/20/17 05:20 Alkaline Phosphatase 54 units/L (35-129) 06/20/17 05:20 Troponin T < 0.010 ng/mL (0.00-0.029) 06/16/17 13:43 NT-Pro-B Natriuret Pep 3968 pg/mL (0-900) H 06/16/17 13:43 Total Protein 6.2 g/dL (6.3-8.2) L 06/20/17 05:20 Albumin 3.4 g/dL (3.9-5) L 06/20/17 05:20 Albumin/Globulin Ratio 1.2 % 06/20/17 05:20 Urine Color Yellow (Yellow) 06/16/17 Unknown Urine Turbidity Clear (Clear) 06/16/17 Unknown Urine pH 5.0 (5.0-7.0) 06/16/17 Unknown Ur Specific [place] 1.013 (1.003-1.030) 06/16/17 Unknown Urine Protein 30 mg/dl mg/dL (Negative) 06/16/17 Unknown Urine Glucose (UA) Neg mg/dL (Negative) 06/16/17 Unknown Urine Ketones Neg mg/dL (Negative) 06/16/17 Unknown Urine Blood Neg (Negative) 06/16/17 Unknown Urine Nitrite Neg (Negative) 06/16/17 Unknown Urine Bilirubin Neg (Negative) 06/16/17 Unknown Urine Urobilinogen < 2.0 mg/dL (<2.0) 06/16/17 Unknown Ur Leukocyte Esterase Neg (Negative) 06/16/17 Unknown Urine WBC (Auto) 1.0 /HPF (0.0-6.0) 06/16/17 Unknown Urine RBC (Auto) 1.0 /HPF (0.0-6.0) 06/16/17 Unknown U Epithel Cells (Auto) < 1.0 /HPF (0-13.0) 06/16/17 Unknown Urine Bacteria (Auto) 2+ /HPF (Negative) 06/16/17 Unknown Urine Mucus Few /HPF 06/16/17 Unknown Blood Type A POSITIVE 06/16/17 14:28 Antibody Screen Negative 06/16/17 14:28
--- NOTE | 2017-06-24 14:54 | Progress Note ---
Assessment and Plan Imp: 1. HCAP (admitted to [facility] 04/2017) 2. Atelectasis L, ? mucous plugging, pneumonia, tracheobronchomalacia, poor effort, etc.; this is a new finding -> nothing on [facility] CT chest 04/2017 to suggest endobronchial lesion/malignancy 3. Acute respiratory failure, hypoxia 4. COPD exac. 5. AFib w/ RVR Rec: 1. Vanco/Zosyn; stop Azithro as has received 7 days 2. Solumedrol -> decrease 3. Duonebs, pulmicort/brovana 4. Incentive bea 10x/hour; instructed her on how to use 5. OOB to chair and/or ambulate TID 6. Airway clearance ordered 06/22/17, has not been done; re-ordered twice today with RT; needs vest therapy 7. Mucinex/Mucomyst added 8. CXR in AM; if L lung does not open up will need bronch Wednesday Plan of care reviewed with patient, she understands/agrees Subjective Date of service: 06/24/17 Principal diagnosis: sepsis, Acute respiratory failure Interval history: No events. On 5L NC. Poor historian. No complaints. Active Medications Acetaminophen (Tylenol) 650 mg PO Q4H PRN PRN Reason: Pain MILD(1-3)/Fever >100.5/CALDERÓN Last Admin: 06/21/17 21:52 Dose: 650 mg Albuterol (Proventil) 2.5 mg IH Q3HRT PRN PRN Reason: Wheezing Albuterol/Ipratropium (Duoneb *Not For Prn Use*) 1 ampul IH TIDRT [facility] Last Admin: 06/24/17 14:51 Dose: 1 ampul Apixaban (Eliquis) 2.5 mg PO Q12HR [facility] PRN Reason: Protocol Last Admin: 06/24/17 10:19 Dose: 2.5 mg Arformoterol Tartrate (Brovana Nebu) 15 mcg IH Q12HRT [facility] Last Admin: 06/24/17 11:19 Dose: 15 mcg Bisacodyl (Dulcolax) 10 mg TN QDAY PRN PRN Reason: Constipation unrelieved by MOM Budesonide (Pulmicort) 0.5 mg IH Q12HRT [facility] Last Admin: 06/24/17 11:18 Dose: 0.5 mg Piperacillin Sod/Tazobactam Sod (Zosyn/Ns 3.375gm/50ml) 3.375 gm in 50 mls @ 100 mls/hr IV Q6H [facility] Last Admin: 06/24/17 10:19 Dose: 100 mls/hr Vancomycin HCl 750 mg/ Sodium (Chloride) 257.5 mls @ 166.667 mls/hr IV Q24H [facility] Last Admin: 06/23/17 16:20 Dose: 166.667 mls/hr Lorazepam (Ativan) 0.5 mg IV Q4H PRN PRN Reason: Anxiety Magnesium Hydroxide (Milk Of Magnesia) 30 ml PO Q4H PRN PRN Reason: Constipation Methylprednisolone Sodium Succinate (Solu-Medrol) 20 mg IV Q8H [facility] Last Admin: 06/24/17 13:45 Dose: 20 mg Metoprolol Tartrate (Lopressor) 50 mg PO Q12HR [facility] Last Admin: 06/24/17 10:18 Dose: 50 mg Ondansetron HCl (Zofran) 4 mg IV Q8H PRN PRN Reason: N/V unrelieved by Reglan Potassium Chloride (K-Dur) 40 meq PO Q6H [facility] Stop: 06/24/17 16:01 Last Admin: 06/24/17 10:18 Dose: 40 meq Vancomycin HCl (Vancomycin Pharmacy To Dose) 1 each IV PKCONSULT [facility] PRN Reason: Protocol Objective Vital Signs - 12hr 06/24/17 06/24/17 06/24/17 05:12 11:19 11:23 Temperature 98.3 F 97.9 F Pulse Rate 103 H Pulse Rate [ 81 Anterior Bilateral Throughout] Respiratory 23 16 Rate Respiratory 18 Rate [Anterior Bilateral Throughout] Blood Pressure 121/77 Blood Pressure 105/59 [Right] O2 Sat by Pulse 99 Oximetry 06/24/17 11:49 Temperature Pulse Rate Pulse Rate [ 60 Anterior Bilateral Throughout] Respiratory Rate Respiratory 18 Rate [Anterior Bilateral Throughout] Blood Pressure Blood Pressure [Right] O2 Sat by Pulse Oximetry Constitutional: no acute distress, alert Eyes: non-icteric ENT: oropharynx moist Neck: supple Effort: normal Ascultation: Right: clear, Left: diminished breath sounds Cardiovascular: irregular rhythm (no mrg) Gastrointestinal: normoactive bowel sounds, soft, non-tender Extremities: no cyanosis, no edema, pink and warm Neurologic: normal mental status, non-focal exam, pupils equal and round, CN II- XII normal Psychiatric: mood appropriate, affect normal CBC and BMP: 06/22/17 04:56 06/24/17 04:48 ABG, PT/INR, D-dimer: ABG POC ABG pH 7.379 (7.35-7.45) 06/16/17 15:31 POC ABG pCO2 37.3 (35-45) 06/16/17 15:31 POC ABG pO2 57 (80-105) L 06/16/17 15:31 POC ABG HCO3 22.0 06/16/17 15:31 POC ABG Total CO2 23 06/16/17 15:31 POC ABG O2 Sat 89 06/16/17 15:31 PT/INR, D-dimer PT 16.9 Sec. (12.2-14.9) H 06/16/17 13:43 INR 1.30 (0.87-1.13) H 06/16/17 13:43 D-Dimer 328.38 ng/mlDDU (0-234) H 06/16/17 13:43 Abnormal lab findings: Abnormal Labs 06/16/17 06/16/17 06/16/17 13:43 13:43 13:43 WBC 14.4 H RBC 5.51 H Hct 44.1 H MCV MCH 24 L RDW 19.7 H Lymph % (Auto) 7.6 L [place] % (Auto) Lymph # 1.1 L [place] # 1.0 H Seg Neutrophils % 84.2 H Seg Neuts % (Manual) Lymphocytes % (Manual) Seg Neutrophils # 12.2 H Seg Neutrophils # Man Lymphocytes # (Manual) PT 16.9 H INR 1.30 H D-Dimer POC ABG pO2 Sodium Potassium Carbon Dioxide 20 L BUN 34 H Creatinine 1.3 H Glucose 107 H POC Glucose Lactic Acid Calcium Magnesium AST ALT NT-Pro-B Natriuret Pep 3968 H Total Protein Albumin 06/16/17 06/16/17 06/16/17 13:43 14:28 14:28 WBC RBC Hct MCV MCH RDW Lymph % (Auto) [place] % (Auto) Lymph # [place] # Seg Neutrophils % Seg Neuts % (Manual) Lymphocytes % (Manual) Seg Neutrophils # Seg Neutrophils # Man Lymphocytes # (Manual) PT INR D-Dimer 328.38 H POC ABG pO2 Sodium Potassium Carbon Dioxide BUN Creatinine Glucose POC Glucose Lactic Acid 2.10 H* Calcium Magnesium 3.40 H AST ALT NT-Pro-B Natriuret Pep Total Protein Albumin 06/16/17 06/16/17 06/16/17 15:31 18:59 18:59 WBC RBC Hct MCV MCH RDW Lymph % (Auto) [place] % (Auto) Lymph # [place] # Seg Neutrophils % Seg Neuts % (Manual) Lymphocytes % (Manual) Seg Neutrophils # Seg Neutrophils # Man Lymphocytes # (Manual) PT INR D-Dimer POC ABG pO2 57 L Sodium Potassium Carbon Dioxide 21 L BUN 37 H Creatinine 1.4 H Glucose 141 H POC Glucose Lactic Acid 2.10 H* Calcium Magnesium AST ALT NT-Pro-B Natriuret Pep Total Protein Albumin 06/18/17 06/18/17 06/19/17 04:47 04:47 04:45 WBC 12.3 H RBC Hct MCV MCH 26 L 26 L RDW 18.8 H 18.7 H Lymph % (Auto) [place] % (Auto) Lymph # [place] # Seg Neutrophils % Seg Neuts % (Manual) 93.0 H 96.0 H Lymphocytes % (Manual) 3.0 L 1.0 L Seg Neutrophils # Seg Neutrophils # Man 11.4 H 10.4 H Lymphocytes # (Manual) 0.4 L 0.1 L PT INR D-Dimer POC ABG pO2 Sodium Potassium Carbon Dioxide BUN 30 H Creatinine Glucose 117 H POC Glucose Lactic Acid Calcium Magnesium 2.40 H AST ALT NT-Pro-B Natriuret Pep Total Protein Albumin 3.5 L 06/19/17 06/19/17 06/19/17 04:45 11:57 16:15 WBC RBC Hct MCV MCH RDW Lymph % (Auto) [place] % (Auto) Lymph # [place] # Seg Neutrophils % Seg Neuts % (Manual) Lymphocytes % (Manual) Seg Neutrophils # Seg Neutrophils # Man Lymphocytes # (Manual) PT INR D-Dimer POC ABG pO2 Sodium Potassium Carbon Dioxide BUN 39 H Creatinine Glucose 115 H POC Glucose 268 H 196 H Lactic Acid Calcium Magnesium AST ALT NT-Pro-B Natriuret Pep Total Protein Albumin 06/20/17 06/20/17 06/21/17 05:20 05:20 05:01 WBC 11.6 H RBC Hct MCV MCH 25 L 25 L RDW 19.0 H 18.9 H Lymph % (Auto) 3.2 L [place] % (Auto) 8.5 H Lymph # 0.4 L [place] # 1.0 H Seg Neutrophils % 88.3 H Seg Neuts % (Manual) 96.0 H Lymphocytes % (Manual) 1.0 L Seg Neutrophils # 10.3 H Seg Neutrophils # Man 8.4 H Lymphocytes # (Manual) 0.1 L PT INR D-Dimer POC ABG pO2 Sodium 146 H Potassium 3.4 L Carbon Dioxide BUN 33 H Creatinine Glucose 132 H POC Glucose Lactic Acid Calcium Magnesium AST 51 H ALT 70 H NT-Pro-B Natriuret Pep Total Protein 6.2 L Albumin 3.4 L 06/21/17 06/22/17 06/22/17 05:01 04:56 04:56 WBC RBC 5.26 H Hct MCV 78 L MCH 25 L RDW 19.1 H Lymph % (Auto) [place] % (Auto) Lymph # [place] # Seg Neutrophils % Seg Neuts % (Manual) 89.0 H Lymphocytes % (Manual) 2.0 L Seg Neutrophils # Seg Neutrophils # Man 9.2 H Lymphocytes # (Manual) 0.2 L PT INR D-Dimer POC ABG pO2 Sodium 146 H Potassium 3.4 L 3.4 L Carbon Dioxide BUN 30 H 29 H Creatinine Glucose 110 H 144 H POC Glucose Lactic Acid Calcium Magnesium AST ALT NT-Pro-B Natriuret Pep Total Protein Albumin 06/24/17 04:48 WBC RBC Hct MCV MCH RDW Lymph % (Auto) [place] % (Auto) Lymph # [place] # Seg Neutrophils % Seg Neuts % (Manual) Lymphocytes % (Manual) Seg Neutrophils # Seg Neutrophils # Man Lymphocytes # (Manual) PT INR D-Dimer POC ABG pO2 Sodium Potassium 3.3 L Carbon Dioxide BUN 38 H Creatinine Glucose 133 H POC Glucose Lactic Acid Calcium 8.2 L Magnesium AST ALT NT-Pro-B Natriuret Pep Total Protein Albumin Chest x-ray: report reviewed, image reviewed (white out on L with shift of trachea to L c/w atelectasis)
[2017-06-24] MEDS: MUCINEX ER PO SCH ×2 (15:43→21:47)
[2017-06-24] MEDS: VANCOMYCIN 750 MG in NACL 0.9% 250ML 250 ML IV SCH (15:43)
[2017-06-24] MEDS: MUCOMYST INHALATION INHALATION SCH (21:01)
[2017-06-25] MEDS: ZOSYN/NS 3.375GM/50ML 3.375 GM/50 ML BAG IV SCH ×2 (05:21→11:02)
[2017-06-25 05:33] VITALS: BP 126/71
[2017-06-25 06:19] LABS: Calcium 8.2 mg/dL (8.4-10.2)
--- NOTE | 2017-06-25 09:02 | XRay Report ---
AP CHEST: HISTORY: Followup atelectasis. There is minimal improvement since yesterday's exam. Only a very small area in the left upper lobe is aerated on today's exam. There is complete collapse of the remainder of the left lung. The right lung remains generally clear. Heart size is stable. IMPRESSION: Minimal improvement in the left lung atelectasis as described.
[2017-06-25] MEDS: MUCOMYST INHALATION INHALATION SCH (09:05)
[2017-06-25] MEDS: DUONEB *Not for PRN Use IH SCH (09:06)
[2017-06-25] MEDS: BROVANA NEBU IH SCH (09:16)
[2017-06-25] MEDS: PULMICORT IH SCH (09:17)
--- NOTE | 2017-06-25 10:42 | Discharge Summary ---
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 Pt was admitted with diagnosis of acute hypoxemic respiratory failure with oxygen saturation in the 80's. The patient was also noted to have Atrial Fib with RVR, sepsis, pneumonia and exacerbation of COPD. Pt was initiated on sepsis protocol, treated with NIPPV and admitted to telemetry. Patient has remote history of smoking, quit smoking 40 years ago. She denied any significant shortness of breath or cough or chest pain. A CT scan of the chest on admission show significant atelectatic changes in the right middle lobe and lingula. Patient was treated as pneumonia with antibiotics and steroids. Patient was initially seen by cardiology in consultation. The patient was treated with Lopressor and eliquis. Patient was also seen by pulmonary and believed to have more specifically healthcare associated pneumonia since she had a recent admission at [facility] on 2016. Antibiotics were broadened and continued. The patient received appropriate systemic steroids, DuoNeb, Pulmicort/Brovana. Patient appeared to have left atelectasis, potentially secondary to poor effort. Follow-up chest x- ray should be obtained to determine whether patient will need bronchoscopy. CT chest done at [facility] on 04/2017 suggested no evidence of endobronchial lesion/malignancy. The patient has been accepted by [facility] and will transfer. Dedicated discharge time 32 minutes. Disposition: [id number] ANOTHER TYPE HLTHCARE Time spent for discharge: 32 - Discharge Diagnoses (1) Atelectasis of left lung Status: Acute (2) Acute respiratory failure Status: Acute (3) Atrial fibrillation with rapid ventricular response Status: Acute (4) COPD exacerbation Status: Acute (5) Cardiomyopathy Status: Acute Qualifiers: Cardiomyopathy type: unspecified Qualified Code(s): I42.9 - Cardiomyopathy , unspecified (6) Hypoxia Status: Acute (7) Sepsis Status: Acute Core Measure Documentation - Palliative Care Palliative Care/ Comfort Measures: Not Applicable - Core Measures Any of the following diagnoses?: none Exam - Constitutional Vitals: Temp Pulse Resp BP Pulse Ox 98.2 F 68 18 126/71 95 06/25/17 05:29 06/25/17 10:00 06/25/17 10:00 06/25/17 05:29 06/25/17 10:00 General appearance: Present: no acute distress, well-nourished - EENT Eyes: Present: PERRL ENT: hearing intact, clear oral mucosa - Neck Neck: Present: supple, normal ROM - Respiratory Respiratory effort: normal Respiratory: bilateral: CTA - Cardiovascular Heart Sounds: Present: S1 & S2. Absent: rub, click - Extremities Extremities: pulses symmetrical, No edema Peripheral Pulses: within normal limits - Abdominal General gastrointestinal: Present: soft, non-tender, non-distended, normal bowel sounds Female genitourinary: Present: normal - Integumentary Integumentary: Present: clear, warm, dry - Musculoskeletal Musculoskeletal: gait normal, strength equal bilaterally - Psychiatric Psychiatric: appropriate mood/affect, intact judgment & insight - Neurologic Neurologic: CNII-XII intact, moves all extremities Plan Activity: advance as tolerated Weight Bearing Status: Weight Bear as Tolerated Diet: regular Follow up with: PRIMARY MD KATRIN [Primary Care Provider] - 3-5 Days TAMMIE KWONG MD [Staff Physician] - 7 Days WALT ESTRADA MD [Staff Physician] - 7 Days Prescriptions: [id number],Iso [Zosyn 3.375 gm/50 ml Galaxy] 3.375 gm IV Q8HR # 30 [id number]
[2017-06-25] MEDS: ELIQUIS PO SCH (11:02)
[2017-06-25] MEDS: LOPRESSOR PO SCH (11:02)
[2017-06-25] MEDS: MUCINEX ER PO SCH (11:02)
== END 2017-06-25 12:21 | disposition short-term general hospital (02) | DRG 871 ==
LOC: ED 13:10 → 4A 16:33
PROVIDERS: ADMIT Internal Medicine; ATTEND Hospitalist
PROC: 4A033R1 Measurement of Arterial Saturation, Peripheral, Percutaneous Approach (ICD-10-PCS; principal; 2017-06-16)
PROC: 5A09357 Assistance with Respiratory Ventilation, Less than 24 Consecutive Hours, Continuous Positive Airway Pressure (ICD-10-PCS; 2017-06-18)
PROC: 5A09557 Assistance with Respiratory Ventilation, Greater than 96 Consecutive Hours, Continuous Positive Airway Pressure (ICD-10-PCS; 2017-06-20)
DX: A41.9 Sepsis, unspecified organism (principal); J96.01 Acute respiratory failure with hypoxia; J18.9 Pneumonia, unspecified organism; J44.1 Chronic obstructive pulmonary disease with (acute) exacerbation; I13.0 Hypertensive heart and chronic kidney disease with heart failure and stage 1 through stage 4 chronic kidney disease, or unspecified chronic kidney disease; I42.9 Cardiomyopathy, unspecified; D68.59 Other primary thrombophilia; J44.0 Chronic obstructive pulmonary disease with (acute) lower respiratory infection; J98.11 Atelectasis; I50.9 Heart failure, unspecified; N18.9 Chronic kidney disease, unspecified; Z82.49 Family history of ischemic heart disease and other diseases of the circulatory system; I48.0 Paroxysmal atrial fibrillation; I71.2 Thoracic aortic aneurysm, without rupture; J20.9 Acute bronchitis, unspecified; E87.6 Hypokalemia
CPT/HCPCS: 36415; 71010; 71020; 71275; 80048; 80053; 80074; 81001; 82140; 82803; 82962; 83735; 83880; 84100; 84484; 85007; 85025; 85379; 85610; 85730; 86850; 86900; 86901; 87040; 87086; 93005; 93010; 94640; 94760; 96374; 99291; G8978-GP; G8979-GP; G8987-GO; G8988-GO; J0456; J0696; J1940; J1956; J2060; J2543; J2920; J3370; J7050; Q9967

== ENCOUNTER 2017-09-16 08:52 | Outpatient (CLI) | payer MEDICARE ==
--- NOTE | 2017-09-17 10:21 | Magnetic Resonance Report ---
MRI ABDOMEN WITHOUT AND WITH CONTRAST : 09/16/17 10:00:00 CLINICAL: Malignant neoplasm of kidney. COMPARISON :None. TECHNIQUE: Axial T1 in phase and opposed phase, coronal and axial T2 and axial T2 fat sat sequences plus multiphase postcontrast T1 sat sequences on a 1.5 Beverly magnet. 15.0 cc of Multihance was injected intravenously for the contrast portion of the exam and consent was obtained prior to the administration of the contrast. FINDINGS: The right kidney measures 9.4 x 4.2 x 4.5 cm and the left kidney measures 7.6 x 4.1 x 2.8 cm. The renal collecting systems and ureters are normal and nondilated. Too numerous to count bilateral renal cysts. The largest on the right is in the upper pole and measures 1.6 cm. It has a mild globular shape. The largest left renal cyst is in the lower pole. It is exophytic and measures 2.0 cm. Several bilateral cysts are hyperintense on T1 which is indicative of hemorrhage. A complex mass of the lateral upper pole of the left kidney has both cystic and solid components. The solid component demonstrates enhancement postcontrast. The mass measures 2.5 x 1.9 x 2.0 cm. A cluster of right lower pole cysts measures 1.6 x 1.6 x 1.0 cm and the wall demonstrates enhancement postcontrast. The adrenal glands are normal. No lymphadenopathy identified. The liver is normal size with normal contour and overall signal. A few benign hepatic cysts. A wedge-shaped peripheral right hepatic lesion measures 2.5 x 1.6 x 1.7 cm. It demonstrates enhancement postcontrast with initial peripheral enhancement and near-complete central fill-in on delayed images. No other liver lesion is identified. The gallbladder and bile ducts are well. The pancreas is small and otherwise unremarkable. Normal stomach, duodenum and spleen. Atherosclerotic disease of aorta and a 3.9 cm infrarenal abdominal aortic aneurysm with an irregular wall. IMPRESSION: 1. A 2.5 cm complex solid and cystic mass of the upper pole of the left kidney which is suspicious for renal cell carcinoma. 2.Too numerous to count bilateral renal cysts with several hemorrhagic cysts. 3. A 1.6 cm right lower pole cystic lesion demonstrates suspicious peripheral enhancement which suggests that it may be cystic neoplasm but in an earlier stage of development. This lesion is not as well imaged because of its location at the lower pole of the kidney with adjacent colon. Furthermore, the lesion is not well-demonstrated on T2 sequences, possibly related to breathing on those longer sequences. 4. A benign right hepatic cavernous hemangioma and several benign hepatic cysts. 5. A 3.9 cm infrarenal abdominal aortic aneurysm.
== END 2017-09-16 08:53 | disposition home or self-care (01) ==
LOC: MRI 08:52
PROVIDERS: ATTEND Urology
DX: N28.1 Cyst of kidney, acquired (principal); N28.89 Other specified disorders of kidney and ureter; K76.89 Other specified diseases of liver; D18.09 Hemangioma of other sites; I71.4 Abdominal aortic aneurysm, without rupture; I70.0 Atherosclerosis of aorta; Z85.528 Personal history of other malignant neoplasm of kidney
CPT/HCPCS: 36415; 74183; 82565; 84520; A9577

== ENCOUNTER 2017-10-30 17:57 | Emergency (ER) | payer MEDICARE ==
--- NOTE | 2017-10-30 18:27 | Emergency Department Report ---
ED Fall HPI - General Chief Complaint: Fall Stated Complaint: FALL Time Seen by Provider: 10/30/17 18:13 Source: EMS Mode of arrival: Stretcher - History of Present Illness Initial Comments: Patient is a 77-year-old female history of COPD, hypertension and CHF. Patient brought into the ER via EMS for evaluation after a fall. Patient stated that she was trying to reach something and then she fell landed on the right side complaining of right elbow pain and right leg pain. Patient also sustained a laceration to her right leg. She denied any symptoms prior to the fall. She denied any loss of consciousness, weakness, numbness or tingling sensation, neck pain or injury, bowel or bladder incontinence. - Related Data Home Medications Medication Instructions Recorded Confirmed Last Taken Saccharomyces Boulardii [Probiotic] 250 mg PO BID 06/16/17 10/30/17 Unknown Amiodarone [Cordarone 200 MG TAB] 200 mg PO BID 10/30/17 10/30/17 10/30/17 AtorvaSTATin [Lipitor] 20 mg PO QHS 10/30/17 10/30/17 10/29/17 Furosemide [Lasix] 10 mg PO QDAY 10/30/17 10/30/17 10/30/17 Ipratropium/Albuter (Nf) 2 puff IH QID 10/30/17 10/30/17 Unknown [Combivent (Nf)] Metoprolol [Lopressor] 25 mg PO BID 10/30/17 10/30/17 10/30/17 Oxycodone HCl/Acetaminophen 1 each PO Q8H PRN 10/30/17 10/30/17 Unknown [Percocet 10/325 mg] Previous Rx's Medication Instructions Recorded Last Taken Type Bisacodyl [Dulcolax suppos] 10 mg IA QDAY PRN supp.rect 06/25/17 Unknown Rx Acetaminophen/Codeine [Tylenol 1 tab PO Q6H PRN #14 tab 10/30/17 Unknown Rx /Codeine # 3 tab] Ondansetron [Zofran Odt] 4 mg PO Q8HR PRN #14 tab.rapdis 10/30/17 Unknown Rx Allergies Allergy/AdvReac Type Severity Reaction Status Date / Time No Known Allergies Allergy Unverified 06/16/17 13:34 ED Review of Systems ROS: Stated complaint: FALL Other details as noted in HPI Comment: All other systems reviewed and negative Constitutional: denies: chills, fever Respiratory: denies: cough, orthopnea, shortness of breath, SOB with exertion, SOB at rest Cardiovascular: denies: chest pain, palpitations, dyspnea on exertion Gastrointestinal: denies: abdominal pain, nausea, vomiting, diarrhea, constipation, hematemesis Genitourinary: denies: urgency Musculoskeletal: denies: back pain Neurological: denies: headache, weakness, numbness, paresthesias, confusion ED Past Medical Hx - Past Medical History Hx Hypertension: Yes Hx Congestive Heart Failure: Yes Hx Diabetes: No Hx Asthma: Yes Hx COPD: Yes Additional medical history: AFIB - Social History Smoking Status: Former Smoker Substance Use Type: None - Medications Home Medications: Home Medications Medication Instructions Recorded Confirmed Last Taken Type Saccharomyces Boulardii [Probiotic] 250 mg PO BID 06/16/17 10/30/17 Unknown History Bisacodyl [Dulcolax suppos] 10 mg IA QDAY PRN supp.rect 06/25/17 10/30/17 Unknown Rx Acetaminophen/Codeine [Tylenol 1 tab PO Q6H PRN #14 tab 10/30/17 Unknown Rx /Codeine # 3 tab] Amiodarone [Cordarone 200 MG TAB] 200 mg PO BID 10/30/17 10/30/17 10/30/17 History AtorvaSTATin [Lipitor] 20 mg PO QHS 10/30/17 10/30/17 10/29/17 History Furosemide [Lasix] 10 mg PO QDAY 10/30/17 10/30/17 10/30/17 History Ipratropium/Albuter (Nf) 2 puff IH QID 10/30/17 10/30/17 Unknown History [Combivent (Nf)] Metoprolol [Lopressor] 25 mg PO BID 10/30/17 10/30/17 10/30/17 History Ondansetron [Zofran Odt] 4 mg PO Q8HR PRN #14 tab.rapdis 10/30/17 Unknown Rx Oxycodone HCl/Acetaminophen 1 each PO Q8H PRN 10/30/17 10/30/17 Unknown History [Percocet 10/325 mg] ED Physical Exam - General Limitations: Physical Limitation General appearance: alert, in no apparent distress - Head Head exam: Present: atraumatic, normocephalic, normal inspection - Eye Eye exam: Present: normal appearance, PERRL - ENT ENT exam: Present: normal exam, normal orophraynx, mucous membranes moist - Neck Neck exam: Present: normal inspection, full ROM. Absent: tenderness, meningismus, lymphadenopathy, thyromegaly - Respiratory Respiratory exam: Present: normal lung sounds bilaterally. Absent: respiratory distress, wheezes, rales, rhonchi, stridor, chest wall tenderness, accessory muscle use, decreased breath sounds, prolonged expiratory - Cardiovascular Cardiovascular Exam: Present: regular rate, normal rhythm, normal heart sounds - GI/Abdominal GI/Abdominal exam: Present: soft, normal bowel sounds. Absent: distended, tenderness, guarding, rebound, rigid, organomegaly, mass, bruit, pulsatile mass - Extremities Exam Extremities exam: Present: other (6 cm laceration to the RT leg, irregular.) - Back Exam Back exam: Present: normal inspection, full ROM. Absent: tenderness, CVA tenderness (R), CVA tenderness (L), muscle spasm, paraspinal tenderness, vertebral tenderness, rash noted - Neurological Exam Neurological exam: Present: alert, oriented X3, CN II-XII intact, normal gait, reflexes normal - Skin Skin exam: Present: warm, dry, normal color ED Course Vital Signs 10/30/17 10/30/17 10/30/17 18:05 18:35 18:42 Temperature 98.3 F Pulse Rate 46 L 47 L Respiratory 16 16 16 Rate Blood Pressure 116/38 Blood Pressure 138/38 [Left] O2 Sat by Pulse 96 97 Oximetry 10/30/17 20:27 Temperature Pulse Rate 50 L Respiratory 16 Rate Blood Pressure Blood Pressure 135/99 [Left] O2 Sat by Pulse 98 Oximetry - Laceration /Wound Repair Right Leg Wound Location: lower extremity Wound Length (cm): 6 Wound's Depth, Shape: irregular Wound Explored: clean Irrigated w/ Saline (ccs): 100 Betadine Prep?: Yes Anesthesia: 1% Lidocaine Volume Anesthetic (ccs): 5 Wound Debrided: extensive Wound Repaired With: sutures Suture Size/Type: 4:0 Sterile Dressing Applied?: Yes ED Medical Decision Making - Radiology Data Radiology results: report reviewed Referring Physician: MICHEL CONTRERAS Patient Name: REZA RIVERA Date of : 1940 Sex: Female Report Date: 2017-10-30 Report Status: Finalized Findings [facility] [address] [place] [address] Cat Scan Report Signed Patient: REZA RIVERA MR#: [id number] : 1940 Acct:[id number] Age/Sex: 77 / F ADM Date: 10/30/17 Loc: ED Attending Dr: Ordering Physician: MICHEL CONTRERAS Date of Service: 10/30/17 Procedure(s): CT head/brain wo con Accession Number(s): [id number] cc: MICHEL CONTRERAS FINAL REPORT PROCEDURE: CT HEAD/BRAIN WO CON TECHNIQUE: Computerized tomography of the head was performed without contrast material. HISTORY: head injury COMPARISON: No prior studies are available for comparison. FINDINGS: No CT evidence of intracranial mass, hemorrhage, acute territorial infarction, or hydrocephalus. The intracranial arteries are symmetric in density. There is bilateral white matter low attenuation, compatible with chronic microvascular ischemic changes. There are involutional changes, with prominence of the ventricles and the sulci. Calvarium is intact. Visualized paranasal sinuses and mastoids are aerated. IMPRESSION: No CT evidence of acute intracranial abnormality Transcribed By: [facility] Dictated By: HAL BOYER M.D. Electronically Authenticated By: HAL BOYER M.D. Signed Date/Time: 10/30/171900 DD/ 00 TD/TT: 10/30/171900 Critical care attestation.: If time is entered above; I have spent that time in minutes in the direct care of this critically ill patient, excluding procedure time. ED Disposition Clinical Impression: Fall with injury, Laceration of leg Disposition: DC-01 TO HOME OR SELFCARE Is pt being admited?: No Condition: Stable Instructions: Suture Care (ED), Laceration (ED), Fall Prevention for Older Adults (ED), Minor Head Injury (ED) Prescriptions: Acetaminophen/Codeine [Tylenol /Codeine # 3 tab] 1 tab PO Q6H PRN #14 tab PRN Reason: Pain Ondansetron [Zofran Odt] 4 mg PO Q8HR PRN #14 tab.rapdis PRN Reason: Nausea And Vomiting Referrals: PRIMARY CARE,MD [Primary Care Provider] - 3-5 Days
[2017-10-30] MEDS ORDERED: XYLOCAINE 2% INFILTRATI ONE (18:29)
[2017-10-30] MEDS ORDERED: NACL 0.9% IR ONE (18:30)
[2017-10-30] MEDS ORDERED: XYLOCAINE MPF 2% INFILTRATI ONE (18:30)
[2017-10-30] MEDS ORDERED: NACL 0.9% 500 ML IR ONE (18:59)
--- NOTE | 2017-10-30 19:06 | Cat Scan Report ---
FINAL REPORT PROCEDURE: CT HEAD/BRAIN WO CON TECHNIQUE: Computerized tomography of the head was performed without contrast material. HISTORY: head injury COMPARISON: No prior studies are available for comparison. FINDINGS: No CT evidence of intracranial mass, hemorrhage, acute territorial infarction, or hydrocephalus. The intracranial arteries are symmetric in density. There is bilateral white matter low attenuation, compatible with chronic microvascular ischemic changes. There are involutional changes, with prominence of the ventricles and the sulci. Calvarium is intact. Visualized paranasal sinuses and mastoids are aerated. IMPRESSION: No CT evidence of acute intracranial abnormality
[2017-10-30 20:28] VITALS: BP 135/99
--- NOTE | 2017-10-30 20:35 | XRay Report ---
FINAL REPORT EXAM: XR TIBIA FIBULA 2V RT HISTORY: injury/rt leg pain TECHNIQUE: AP and lateral views of the right tibia fibula PRIORS: None. FINDINGS: The bones appear demineralized. 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 There is diffuse atherosclerotic calcification. The knee and ankle are normally aligned. There is no evidence of acute fracture. IMPRESSION: No evidence of acute fracture or subluxation.
--- NOTE | 2017-10-30 20:42 | XRay Report ---
FINAL REPORT EXAM: XR ELBOW 3+V RT HISTORY: fall,rt elbow pain TECHNIQUE: Three views of the right elbow PRIORS: None. FINDINGS: The bones are normally aligned and mineralized. The joint spaces are well-preserved. There is no evidence of acute fracture. The soft tissues are unremarkable. IMPRESSION: No evidence of acute fracture or subluxation.
== END 2017-10-30 21:51 | disposition home or self-care (01) ==
LOC: ED 17:57
DX: S81.811A Laceration without foreign body, right lower leg, initial encounter (principal); I11.0 Hypertensive heart disease with heart failure; J45.909 Unspecified asthma, uncomplicated; I48.91 Unspecified atrial fibrillation; Z87.891 Personal history of nicotine dependence; W26.8XXA Contact with other sharp object(s), not elsewhere classified, initial encounter; Y93.89 Activity, other specified; Y92.89 Other specified places as the place of occurrence of the external cause; Y99.8 Other external cause status
CPT/HCPCS: 70450